=== PATIENT | female | born 1945 | race Caucasian/White ===

== ENCOUNTER 2021-12-21 10:41 | Outpatient (REF) | payer OTHER, SELFPAY ==
[2021-12-25 19:38] LABS: Acetylcholine Receptor Binding <0.30 nmol/L
[2021-12-26 00:27] LABS: Acetylcholine Recept. Blocking <15 (<15)
[2021-12-31 21:21] LABS: Acetylcholine Recep Modulating <1
== END 2021-12-21 10:42 | disposition home or self-care (01) ==
LOC: HO.LAB 10:41
PROVIDERS: PCP Internal Medicine; Visit Provider Psychiatry & Neurology Neurology
DX: H02.409 Unspecified ptosis of unspecified eyelid (principal)
CPT/HCPCS: 36415; 83519

== ENCOUNTER 2023-02-23 09:29 | Outpatient (AMB) | payer OTHER, SELFPAY ==
--- NOTE | 2023-02-23 09:32 | MHC.OFFVIS ---
Intake Vital Signs 02/23/23 09:35 Weight 177 lb 7.554 oz BP 144/84 H Blood Pressure Location Lt brachial Position Sitting Pulse 83 Pulse Source Pulse Oximeter Pulse Oximetry (%) 96 Oxygen Delivery Method Room Air Intake Visit Reasons: copd Allergies Penicillins Allergy (Verified 02/23/23 10:36) Rash Medication List - Last Reconciled 02/23/23 by Nikolas Russo MD albuterol sulfate 90 mcg/actuation 2 puffs inhalation Q6H PRN atorvastatin 40 mg PO DAILY cholecalciferol (vitamin D3) 50 mcg PO DAILY glipizide ER 5 mg PO QDAY hydralazine 50 mg PO TID lisinopril 30 mg PO DAILY metoprolol succinate ER 25 mg PO BID omeprazole 20 mg PO BID oxybutynin chloride ER 10 mg PO DAILY Do you need a note to return to daycare/school/sports/work: No HPI copd HPI Details THIS 77 YEARS OLD FEMALE, IS BEING SEEN FOR THE 1ST TIME FOR PULMONARY EVALUATION AND ONGOING MANAGEMENT FOR HER POSSIBLE COPD. SHE IS VERY PLEASANT, ALERT AND HAD A GOOD CONVERSATION. 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 RETIRED IN 2008. USED TO LIVE IN [place] AND THERE SHE HAD SEEN SOMEONE IN RELATION TO HER BREATHING PROBLEM MANY YEARS AGO, AT [facility]. SHE DID HAVE A PULMONARY FUNCTION TEST ALSO BUT IT WAS MANY YEARS AGO. She is currently living in [facility] in [place]. SHE HAS HISTORY OF SMOKING ABOUT 1 PACK A DAY FOR 40+ YEARS, AND QUIT IN 2008 WITH THE HELP OF A HIP NOTICED. THEN AT THE START OF COVID-19 PANDEMIC, SHE STARTED SMOKING 1 OR 2 CIGARETTES PER WEEK , WHICH SHE IS STILL DOING. SHE HAS ONLY OCCASIONAL COUGH, NONPRODUCTIVE. SHE HAS SOME WHEEZING WITH COUGH BUT ONCE IN A WHILE . SHE USES ALBUTEROL INHALER ONLY SPARINGLY. SHE DOES GET SHORT OF BREATH ON WALKING ON THE STREET , MORE THAN A BLOCK , WALKING UP HILL OR CLIMBING STAIRS. SHE HAS HAD NO PROLONGED OR SUSTAINED BOUTS OF DYSPNEA OR COUGH. AND SHE HAS NOT BEEN HOSPITALIZED FOR TREATMENT OF HER COPD EXACERBATIONS. 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 SHE HAS BEEN TREATED FOR PERIPHERAL NEUROPATHY WHICH MAY BE DUE TO COMBINATION OF DIABETES MELLITUS WELL ALCOHOLIC PERIPHERAL NEUROPATHY, USING AGENTS LIKE GABAPENTIN OR LYRICA DID NOT HELP. SHE DOES HAVE MILD INSTABILITY OF HER GAIT AND USES CANE OR A ROLLATOR WALKER WHEN GOING OUTDOORS. SHE HAS DISCOMFORT IN THE LEGS ESPECIALLY AT NIGHT. PATIENT HAS HAD RIGHT KNEE ARTHROPLASTY, ALSO HAS HAD REPAIR OF FRACTURE OF THE LEFT ANKLE MANY YEARS AGO. [facility] Medical History Dyspnea on exertion COPD (chronic obstructive pulmonary disease) Smoker Social History Patient Tobacco Use Status: Current someday Tobacco user Tobacco use type: Cigarette Cigarette Packs Per Day: 1.5 Years Smoked: 50 Review of Systems Const All systems reviewed & are unremarkable except as noted in HPI and below Eyes Reports other (MILD DROOPING OF UPPER EYELIDS, ONCE IN A WHILE.) ENT Reports no additional complaints Card Denies chest pain, Denies leg edema, Reports dyspnea on exertion (MILD) and Denies orthopnea Resp Reports as per HPI and Reports dyspnea on exertion (MILD) GI Reports heartburn (GERD SYMPTOMS BEING TREATED) Reports post void dribbling and Reports urinary incontinence Musc Reports numbness (LOWER EXTREMITIES) Skin/Breast Reports system reviewed and no additional complaints, except as documented Neuro Reports numbness (LOWER EXTREMITIES) and Reports paresthesias (LOWER EXTREMITIES) Psych Reports no additional complaints Endo Reports other (DIABETES MELLITUS CONTROLLED) Justice/Lymph Reports no additional complaints Aller/Immun Reports no additional complaints Physical Exam Vital Signs: Last Vital Signs Pulse 83 02/23/23 09:35 BP 144/84 H 02/23/23 09:35 Pulse Ox 96 02/23/23 09:35 Oxygen Delivery Method Room Air 02/23/23 09:35 Const General: healthy appearing, comfortable, no acute distress, alert and awake Orientation/consciousness: patient oriented x3 HEENT Head: Yes normal to inspection General nose exam: No nasal polyps present and No nasal discharge present Face and sinus: Yes sinuses nontender Mouth: oropharynx normal Throat: Yes posterior oropharynx normal Eyes General: appearance normal, both eyes and all related structures Neck Neck: Yes normal visual inspection, Yes no lymphadenopathy, Yes trachea midline and Yes no JVD Thyroid: Thyroid normal Chest Chest palpation & inspection: normal inspection of the chest, normal palpation of entire chest wall and no tenderness Resp Other: Percussion note is resonant. Breath sounds slightly distant with prolonged expiratory phase, but equal on both sides. No wheezes crepitations or rhonchi are heard. Cardio Palpation: normal PMI Rate: regular rate Rhythm: regular rhythm Heart sounds: no gallops and no murmurs GI Palpation (GI): Soft to palpation, nontender, No hepatosplenomegaly present and no masses Auscultation: normal bowel sounds Back/Spine/Pelvis Thoracic/Lumbar Spine: thoracic and lumbar spine normal to inspection Skin General skin exam: no rashes or lesions noted Neuro General: patient oriented x3, No gait normal (Slightly on stable and patient uses a walking cane) and no focal motor deficits Cranial nerves: Yes CN's II-XII intact bilaterally Extrem General: Yes normal to inspection, Yes no clubbing, cyanosis or edema and Yes no calf tenderness Psych Appearance: grossly normal and well kempt Speech and movement: Normal speech and movement present Assessment & Plan Assessment & Plan (1) Smoker: Comment: Patient does have past history of smoking 40 years, quit in 2008. Restarted smoking just 1 or 2 cigarettes per day since 2019 , she claims that she has cut down to 1-2 cigarettes per week. Code(s): F17.200 - Nicotine dependence, unspecified, uncomplicated (2) COPD (chronic obstructive pulmonary disease): Comment: She does have dyspnea on exertion which is probably due to some degree of chronic obstructive pulmonary disease. It does not seem to be very symptomatic at this time. PLAN IS TO DO COMPLETE PULMONARY FUNCTION TEST AND THEN DECIDE IF SHE NEEDS UPGRADING OF HER PULMONARY REGIMEN. I HAD A DETAILED DISCUSSION WITH HER ABOUT COPD. CHEST X-RAY IS ORDERED. COMPLETE PULMONARY FUNCTION TEST IS ORDERED. Code(s): J44.9 - Chronic obstructive pulmonary disease, unspecified (3) Dyspnea on exertion: Comment: SHE HAS MILD DEGREE OF DYSPNEA ON EXERTION, WHICH IS PROBABLY DUE TO UNDERLYING COPD. ADVISED TO KEEP ON DOING DEEP BREATHING EXERCISES. AND WAIT TILL WE DO COMPLETE PULMONARY FUNCTION TEST FOR ANY FURTHER ADJUSTMENT IN THE TREATMENT REGIMEN. Code(s): R06.09 - Other forms of dyspnea Orders: Orders XR chest 2V Today F17.200 - Nicotine dependence, unspecified, uncomplicated, J44.9 - Chronic obstructive pulmonary disease, unspecified PFT pulmonary function test Today F17.200 - Nicotine dependence, unspecified, uncomplicated, J44.9 - Chronic obstructive pulmonary disease, unspecified, R06.09 - Other forms of dyspnea Coding Level of Care Code New Pt Level 4 (81137) Diagnoses Smoker F17.200 COPD (chronic obstructive pulmonary disease) J44.9 Dyspnea on exertion R06.09
[2023-02-23 09:35] VITALS: BP 144/84; PULSE 83; O2SAT 96
== END 2023-02-23 10:10 | disposition home or self-care (01) ==
PROVIDERS: PCP Internal Medicine; Referring Provider Internal Medicine; Visit Provider Internal Medicine
DX: F17.200 Nicotine dependence, unspecified, uncomplicated (principal); J44.9 Chronic obstructive pulmonary disease, unspecified; R06.09 Other forms of dyspnea
CPT/HCPCS: 99204

== ENCOUNTER 2023-02-23 09:29 | Outpatient (REF) | payer MEDICARE, SELFPAY ==
--- NOTE | ~2023-02-23 | XR_ITS ---
EXAMINATION: XR CHEST CLINICAL INFORMATION: COPD COMPARISON: None available. TECHNIQUE: 2 views of the chest were obtained. FINDINGS: The cardiac silhouette does not appear enlarged. There is an air-fluid level that projects behind the heart suggestive of an esophageal hernia. Hilar and mediastinal contours are otherwise unremarkable. The lungs are clear. No pleural effusion or pneumothorax. Degenerative changes of the spine. XR/XR chest 2V IMPRESSION: Probable esophageal hernia. Otherwise unremarkable exam.
== END 2023-02-23 09:30 | disposition home or self-care (01) ==
LOC: HO.XRAY 09:29
PROVIDERS: PCP Internal Medicine; Visit Provider Internal Medicine
DX: J44.9 Chronic obstructive pulmonary disease, unspecified (principal); R06.09 Other forms of dyspnea; F17.210 Nicotine dependence, cigarettes, uncomplicated
CPT/HCPCS: 71046; 99202

== ENCOUNTER 2023-03-29 13:31 | Outpatient (REF) | payer MEDICARE, SELFPAY ==
--- NOTE | 2023-03-29 14:47 | PFT_ITS ---
Forced vital capacity 66%, FEV1 54%. FEV1/FVC ratio is 63. [id number] 42% and MVV 43%. Post bronchodilator therapy, there is a slight improvement in FVC and FEV1. Total lung capacity 92%, and residual volume 129%. Diffusion capacity is 21%, which is markedly decreased. CONCLUSION: Moderately severe obstructive airway disorder. Only minimal improvement after bronchodilator therapy is noted. There is evidence of some air trapping. Diffusion capacity is markedly decreased out of proportion to the other findings. I think this is more likely due to technical reason or maybe severe emphysema. This should be correlated with the clinical picture, and the patient should have resting and exercise oxygen saturation measurement. Nikolas Russo MD MSAnn/MODL / [phone]
== END 2023-03-29 13:32 | disposition home or self-care (01) ==
LOC: HO.RESP 13:31
PROVIDERS: PCP Internal Medicine; Visit Provider Internal Medicine
DX: J44.9 Chronic obstructive pulmonary disease, unspecified (principal); R06.09 Other forms of dyspnea; F17.200 Nicotine dependence, unspecified, uncomplicated
CPT/HCPCS: 94010; 94727; 94729

== ENCOUNTER → 2023-03-29 14:47 | Outpatient (BNV) | payer MEDICARE, SELFPAY | PROVIDERS: PCP Internal Medicine; Visit Provider Internal Medicine | DX: J44.9 Chronic obstructive pulmonary disease, unspecified (principal) | CPT/HCPCS: 94060; 94727; 94729 ==

== ENCOUNTER 2023-06-15 10:29 | Outpatient (AMB) | payer OTHER, SELFPAY ==
[2023-06-15 10:33] VITALS: BP 142/70; PULSE 61; O2SAT 97; BMI 32.2
--- NOTE | 2023-06-15 10:33 | A.OFFVIS_ITS ---
Intake Vital Signs 06/15/23 10:33 Height 5 ft 3 in Weight 181 lb 14.102 oz BMI 32.2 BP 142/70 H Blood Pressure Location Lt brachial Position Sitting Pulse 61 Pulse Source Pulse Oximeter Pulse Oximetry (%) 97 Oxygen Delivery Method Room Air Intake Visit Reasons: copd Intake Note: pt is here for follow up of pft and states she is feeling okay with breating, walking is the problem. Cardiac Cath Lab Manager Required: No Allergies Penicillins Allergy (Verified 06/15/23 10:51) Rash Medication List - Last Reconciled 06/15/23 by Nikolas Russo MD albuterol sulfate 90 mcg/actuation 2 puffs inhalation Q6H PRN atorvastatin 40 mg PO DAILY cholecalciferol (vitamin D3) 50 mcg PO DAILY glipizide ER 10 mg PO QDAY hydralazine 50 mg PO TID lisinopril 30 mg PO DAILY methenamine hippurate 1 g PO BID metoprolol succinate ER 25 mg PO BID omeprazole 20 mg PO BID oxybutynin chloride ER 10 mg PO DAILY trimethoprim 100 mg PO BEDTIME Do you need a note to return to daycare/school/sports/work: No HPI copd HPI Details THIS 78 YEARS OLD VERY PLEASANT FEMALE IS BACK FOR FOLLOW-UP, AFTER HAVING A CHEST X-RAY AND PULMONARY FUNCTION TEST. SHE QUIT SMOKING IN 2008, BUT IN THE PAST FEW YEARS HAS STARTED SMOKING A FEW CIGARETTES 1 OR 2 PER DAY, TO RELIEVE HER BOREDOM. SHE IS OKAY AT REST WITH VERY MINIMAL COUGH OR WHEEZING. MAIN COMPLAINT IS GETTING SHORT OF BREATH WHEN SHE WALKS OUTDOORS, EVEN FOR SHORT DISTANCE. PFSH Medical History Dyspnea on exertion COPD (chronic obstructive pulmonary disease) Smoker Social History Patient Tobacco Use Status: Current someday Tobacco user Tobacco use type: Cigarette Cigarette Packs Per Day: 0.5 Cigarettes Per Day: 2 Years Smoked: 50 Review of Systems Const All systems reviewed & are unremarkable except as noted in HPI and below Eyes Reports other (MILD DROOPING OF UPPER EYELIDS, ONCE IN A WHILE.) ENT Reports no additional complaints Card Denies chest pain, Denies leg edema, Reports dyspnea on exertion (MILD) and Den ies orthopnea Resp Reports as per HPI and Reports dyspnea on exertion (MILD) GI Reports heartburn (GERD SYMPTOMS BEING TREATED) Reports post void ibbling and Reports urinary incontinence Musc Reports numbness (LOWER EXTREMITIES) Skin/Breast Reports system reviewed and no additional complaints, except as documented Neuro Reports numbness (LOWER EXTREMITIES) and Reports paresthesias (LOWER EXTREMITIES) Psych Reports no additional complaints Endo Reports other (DIABETES MELLITUS CONTROLLED) Justice/Lymph Reports no additional complaints Aller/Immun Reports no additional complaints Physical Exam Vital Signs: Last Vital Signs Pulse 61 06/15/23 10:33 BP 142/70 H 06/15/23 10:33 Pulse Ox 97 06/15/23 10:33 Oxygen Delivery Method Room Air 06/15/23 10:33 BMI result Body Mass Index 32.2 Const General: healthy appearing, comfortable, no acute distress, alert and awake Orientation/consciousness: patient oriented x3 HEENT Head: Yes normal to inspection General nose exam: No nasal polyps present and No nasal discharge present Face and sinus: Yes sinuses nontender Mouth: oropharynx normal Throat: Yes posterior oropharynx normal Eyes General: appearance normal, both eyes and all related structures Neck Neck: Yes normal visual inspection, Yes no lymphadenopathy, Yes trachea midline and Yes no JVD Thyroid: Thyroid normal Chest Chest palpation & inspection: normal inspection of the chest, normal palpation of entire chest wall and no tenderness Resp Other: Percussion note is resonant. Breath sounds slightly distant with prolonged expiratory phase, but equal on both sides. No wheezes crepitations or rhonchi are heard. Cardio Palpation: normal PMI Rate: regular rate Rhythm: regular rhythm Heart sounds: no gallops and no murmurs GI Palpation (GI): Soft to palpation, nontender, No hepatosplenomegaly present and no masses Auscultation: normal bowel sounds Back/Spine/Pelvis Thoracic/Lumbar Spine: thoracic and lumbar spine normal to inspection Skin General skin exam: no rashes or lesions noted Neuro General: patient oriented x3, No gait normal (Slightly on stable and patient uses a walking cane) and no focal motor deficits Cranial nerves: Yes CN's II-XII intact bilaterally Extrem General: Yes normal to inspection, Yes no clubbing, cyanosis or edema and Yes no calf tenderness Psych Appearance: grossly normal and well kempt Speech and movement: Normal speech and movement present Results Reviewed Results Reviewed: Chest x-ray on 02/23 , normal except for presence of the possible hiatal her akhil. Pulmonary function test on 03/29/2023. Positive for moderately severe obstructive airway disorder, with some improvement after bronchodilator therapy. TLC 92% and residual volume 129% indicating some air trapping. DLCO is 21%, this is too much decreased out of proportion to the other values. May be due to technical reason. 6 minutes walk test : No significant O2 desaturation, lowest O2 sat 91% * so much decreased DLCO is probably due to technical reason. Assessment & Plan Assessment & Plan (1) Smoker: Comment: Patient does have past history of smoking 40 years, quit in 2008.Not candidate for LDCT ,age 78 Restarted smoking just 1 or 2 cigarettes per day since 2019 , she claims that she has cut down to 1-2 cigarettes per week. Code(s): F17.200 - Nicotine dependence, unspecified, uncomplicated Plan: Had a good talk with her about quitting completely. She is down to 1 or 2 cigarettes per week, and will try to quit completely (2) COPD (chronic obstructive pulmonary disease): Comment: She does have dyspnea on exertion . PULMONARY FUNCTION TEST DOES CONFIRM THAT SHE HAS MODERATE DEGREE OF COPD. THERE IS SOME IMPROVEMENT IN FVC AND FEV1 AFTER BRONCHODILATOR THERAPY. EXPLAINED THE RESULTS TO THE PATIENT. SHE WANTS TO TRY SOME INHALER. Code(s): J44.9 - Chronic obstructive pulmonary disease, unspecified Plan: BECAUSE THERE WAS SOME IMPROVEMENT AFTER BRONCHODILATOR THERAPY, I THINK SHE WILL DO BETTER WITH THE COMBINATION INHALER. SHE IS NOT VERY FOND OF USING THE MEDS. I THINK BREO- 200-251 INHALATION DAILY WOULD BE MORE CONVENIENT FOR HER TO USE. SHE IS FULLY AWARE OF RINSING HER THROAT THOROUGHLY AFTER USING THIS INHALER. Plan BREO 200-25 1 INH DAILY AND ALBUTEROL HFA 2 PUFFS ONLY PRN Medications: New fluticasone furoate-vilanterol 200-25 mcg/dose (Breo Ellipta) 1 inh inhalation DAILY 60 ea 5RF COPD 30 days Coding Level of Care Code Est Pt Level 3 (99785) Diagnoses Smoker F17.200 COPD (chronic obstructive pulmonary disease) J44.9
[2023-06-15 11:34] VITALS: PULSE 57; O2SAT 95
== END 2023-06-15 11:05 | disposition home or self-care (01) ==
PROVIDERS: PCP Internal Medicine; Visit Provider Internal Medicine
DX: F17.200 Nicotine dependence, unspecified, uncomplicated (principal); J44.9 Chronic obstructive pulmonary disease, unspecified
CPT/HCPCS: 94618; 99213

== ENCOUNTER → 2023-06-15 10:29 | Outpatient (BNVA) | payer OTHER, SELFPAY | PROVIDERS: PCP Internal Medicine; Visit Provider Internal Medicine | DX: J44.9 Chronic obstructive pulmonary disease, unspecified (principal); F17.210 Nicotine dependence, cigarettes, uncomplicated | CPT/HCPCS: 94618 ==

== ENCOUNTER 2023-07-08 13:01 | Inpatient (IN) | payer MEDICARE, OTHER, SELFPAY ==
--- NOTE | ~2023-07-08 | CT_ITS ---
EXAMINATION: CT ANGIOGRAM OF THE CHEST WITH AND WITHOUT CONTRAST (CT PULMONARY ANGIOGRAM FOR PE) CLINICAL INFORMATION: Reason for Exam SOB COMPARISON: Previous chest x-ray from earlier the same day TECHNIQUE: Prior to contrast administration, noncontrast localization images were obtained. Subsequently, multidetector volumetric imaging was performed from the thoracic inlet to below the diaphragms following the administration of 65 mL Omnipaque 350 intravenous contrast. No contrast reaction reported Sagittal, coronal, and MIP oblique sagittal reformatted images were obtained on the CT workstation, uploaded to PACS, and reviewed. This CT examination was performed using dose optimization techniques as appropriate, variously including the following: *Automated exposure control *Adjustment of mA and/or kV according to patient size (this includes techniques or standardized protocols for targeted exams where dose is matched to indication/reason for exam; i.e. extremities or head) *Use of iterative reconstruction technique Total exam dose-length product 296 mGy-cm FINDINGS: QUALITY OF STUDY/CONTRAST BOLUS: Satisfactory. PULMONARY ARTERIES: No pulmonary emboli. THORACIC AORTA: No aneurysm. LUNG: Large dense consolidation in the left upper lobe with air bronchograms probably representing pneumonia. Smaller dense consolidation in the right upper lobe with air bronchograms. There is also some involvement of the superior segment of the right lower lobe. This probably represents pneumonia as well. There is a heterogeneous in attenuation nodule in the peripheral pleural right middle lobe measuring 2.4 x 3.4 cm. This is high low in attenuation and has small calcifications. There are scattered small nodules for example in the left lower lobe peripheral or subpleural measuring 1 cm axial image 158 series 10 and peripheral or subpleural right middle lobe largest measuring 6 mm axial image 318 series 10. PLEURA: No pleural effusion or pneumothorax. MEDIASTINUM: Normal heart size. Spinal lymph nodes. Large esophageal hernia or intrathoracic stomach. Severe atherosclerotic disease thoracic aorta. No evidence of septal bowing or right heart strain. CORONARY ARTERY CALCIFICATION: Mild CHEST WALL/AXILLA: No axillary or internal mammary lymphadenopathy. OSSEOUS STRUCTURES: No acute or suspicious osseous abnormality. UPPER ABDOMEN: Question small cystic area in the head of the pancreas measuring 1.5 x 2 cm coronal reconstructed image 37 mm. No reflux of contrast into the hepatic veins to suggest elevated right heart pressures. CT/CT angio chest PE protocol IMPRESSION: 1. No evidence of pulmonary embolism. Dense bilateral upper lobe and superior segment right lower lobe consolidations with air bronchograms probably representing pneumonia. Large esophageal hernia or intrathoracic stomach. Question small cystic area in the head of the pancreas. 2. VTE: negative. 3. There is a heterogeneous in attenuation nodule in the peripheral pleural right middle lobe measuring 2.4 x 3.4 cm, uncertain etiology. Infectious, inflammatory and neoplastic processes should be considered.
--- NOTE | ~2023-07-08 | XR_ITS ---
EXAMINATION: XR CHEST CLINICAL INFORMATION: Reassess pneumonia COMPARISON: Chest x-ray and chest CT July 08, 2023 TECHNIQUE: Frontal view of the chest was obtained. FINDINGS: Persisting but improved airspace opacities within the left lateral upper chest and along the right fissure. Previously noted airspace disease of the right lung base has essentially resolved by radiographic evaluation. There is similar blunting of the left costophrenic angle without gross pleural effusion. No pneumothorax. Cardiac silhouette is mildly enlarged. Hiatal hernia noted. XR/XR chest 1V IMPRESSION: Persistent but improving bilateral airspace disease.
--- NOTE | ~2023-07-08 | CT_ITS ---
EXAMINATION: CT ABDOMEN AND PELVIS WITH CONTRAST CLINICAL INFORMATION: Abdominal pain and diarrhea COMPARISON: None available. TECHNIQUE: Multidetector volumetric images were obtained from the superior aspect of the liver through the pubic symphysis following administration of 65 mL of Omnipaque 350 intravenous contrast. Sagittal and coronal reformatted images were obtained on the technologist's workstation. Oral contrast: Yes This CT examination was performed using dose optimization techniques as appropriate, variously including the following: *Automated exposure control *Adjustment of mA and/or kV according to patient size (this includes techniques or standardized protocols for targeted exams where dose is matched to indication/reason for exam; i.e. extremities or head) *Use of iterative reconstruction technique DLP: 296 mGy-cm FINDINGS: Evaluation of the upper abdomen limited due to motion artifact. LIVER, GALLBLADDER, AND BILIARY TREE: The liver is normal in size, shape, and attenuation. No focal hepatic lesion or biliary ductal dilatation is present. The gallbladder is unremarkable with no evidence of radiopaque gallstones, gallbladder wall thickening, or obvious pericholecystic inflammatory changes. PANCREAS: 1.5 x 2 cm cyst in the head/neck of the pancreas. Atrophic changes of the pancreas. SPLEEN: Unremarkable. ADRENAL GLANDS: Unremarkable. KIDNEYS AND URETERS: The kidneys are normal in size, shape, and attenuation. No hydronephrosis, hydroureter, or calculi seen. Right renal cysts. No imaging follow-up recommended. No perinephric stranding. BLADDER: Unremarkable. GASTROINTESTINAL TRACT: The small and large bowel are unremarkable. The appendix is is not seen. Large esophageal hernia or stomach. ABDOMINAL WALL: Small right inguinal hernia containing fat. LYMPH NODES: Normal. VASCULAR: Atherosclerotic disease PELVIC VISCERA: Hysterectomy OSSEOUS STRUCTURES: Degenerative changes of the spine. No fracture. CT/CT abdomen pelvis w IV con IMPRESSION: Limited due to motion. 1.5 x 2 cm cystic lesion in the neck of the pancreas. Follow-up MR of the pancreas with and without contrast and MRCP recommended. Large esophageal hernia. Fleischner guidelines were followed.
--- NOTE | ~2023-07-08 | XR_ITS ---
EXAMINATION: XR CHEST CLINICAL INFORMATION: SOB COMPARISON: Chest x-ray 02/23/2023 TECHNIQUE: 2 views of the chest were obtained. FINDINGS: The lungs are hypoexpanded with patchy opacity seen in left upper lobe and right upper lung consistent with infiltrates. Heart size and pulmonary vascularity is normal. No gross bony abnormality seen. XR/XR chest 2V IMPRESSION: Bilateral upper lobe infiltrates.
--- NOTE | 2023-07-08 13:12 | ECG_ITS ---
Test Reason : dizziness Blood Pressure : / mmHG Vent. Rate : 092 BPM Atrial Rate : 092 BPM P-R Int : 154 ms QRS Dur : 096 ms QT Int : 372 ms P-R-T Axes : 023 -31 031 degrees QTc Int : 460 ms Normal sinus rhythm Left axis deviation Nonspecific ST and T wave abnormality Abnormal ECG No previous ECGs available Referred By: Jessica Hilton Electronically Signed By:AMY MARTINEZ MD
[2023-07-08 13:20] VITALS: BP 162/84; BP 167/78; PULSE 80; PULSE 96; RESP 18; TEMP 36.9; O2SAT 90; O2SAT 91; BMI 30.1
[2023-07-08 13:23] LABS: Glucose, Whole Blood 386 mg/dL (60-115)
--- NOTE | 2023-07-08 13:35 | ED.GENADULT ---
HPI - General Adult General Chief complaint: Weakness Stated complaint: ams, dizzy, sob Time Seen by Provider: 07/08/23 13:12 History of Present Illness HPI narrative: 78 y/o F patient; PMH COPD not on O2, T2DM on Glipizide, HLD, HTN, GERD; presents from home with family who report patient has been generally unwell since 06/28/2023. The patient herself endorses generalized non-focal abdominal pain, nausea, decreased PO intake, diarrhea, and unspecified weight loss. She denies vomiting. The patient states she initially thought she had COVID, however over the last two days she has noticed her symptoms seem to be worsening. Specifically she endorses a cough productive of yellow/green sputum without hemoptysis and continued significant generalized abdominal pain without the ability to tolerate PO. Family deny known sick contacts. Patient denies: chest pain, syncope. Patient states she has been taking her diabetes medication as prescribed, her latest HbA1c was approx. 8. Related Data Home Medications Medication Instructions Recorded Confirmed albuterol sulfate 90 mcg/actuation 2 puff inhalation Q6H PRN 02/23/23 07/08/23 aerosol inhaler Shortness Of Breath Or Wheezing atorvastatin 40 mg tablet 40 mg PO DAILY 02/23/23 07/08/23 cholecalciferol (vitamin D3) 50 50 mcg PO DAILY 02/23/23 07/08/23 mcg (2,000 unit) capsule hydralazine 50 mg tablet 50 mg PO TID 02/23/23 07/08/23 lisinopril 30 mg tablet 30 mg PO DAILY 02/23/23 07/08/23 oxybutynin chloride 10 mg 10 mg PO DAILY 02/23/23 07/08/23 tablet,extended release 24 hr trimethoprim 100 mg tablet 100 mg PO BEDTIME 06/15/23 07/08/23 cyanocobalamin (vitamin B-12) 1,000 mcg PO DAILY 07/08/23 07/08/23 1,000 mcg tablet gabapentin 300 mg capsule 300 mg PO BID 07/08/23 07/08/23 glipizide 10 mg tablet 10 mg PO DAILY 07/08/23 07/08/23 metoprolol tartrate 25 mg tablet 25 mg PO BID 07/08/23 07/08/23 Previous Rx's Medication Instructions Recorded fluticasone furoate 200 1 inh inhalation DAILY COPD 30 06/15/23 mcg-vilanterol 25 mcg/dose days #60 ea inhalation powder (Breo Ellipta) Allergies Allergy/AdvReac Type Severity Reaction Status Date / Time Penicillins Allergy Rash Verified 07/08/23 13:23 Review of Systems Review of Systems: Yes all other systems are reviewed and are negative Neurologic: Denies Sensory deficit (Neuro) [facility] Past Medical History Attestation statement: The following information was validated with the patient. Source: old records reviewed Medical History Dyspnea on exertion COPD (chronic obstructive pulmonary disease) Smoker Social History Social History Patient Tobacco Use Status: Current someday Tobacco user Tobacco use type: Cigarette Cigarette Packs Per Day: 0.5 Cigarettes Per Day: 2 Years Smoked: 50 Advance Directives: Yes Advance Directives Information Provided: Yes Advance Directives on File: No Physical Exam ED Vital Signs: Vital Signs - 24 hr 07/08/23 13:20 07/08/23 15:00 07/08/23 18:27 Temperature 98.4 F 99.4 F Pulse Rate 96 77 108 H Respiratory Rate 18 21 H 14 Blood Pressure 167/78 H 178/83 H Pulse Oximetry 91 L 92 Oxygen Delivery Method Room Air Nasal Cannula Oxygen Flow Rate 2 BMI result Body Mass Index 30.1 Patient is afebrile and hemodynamically stable. Const General: cooperative Orientation/consciousness: patient oriented x3 HENMT Head: Yes atraumatic Eyes General: appearance normal, both eyes and all related structures Pupils: Equal, round and reactive pupils present Neck Neck: Yes normal visual inspection, Yes full ROM, Yes supple and No tender Chest Chest palpation & inspection: normal inspection of the chest and normal palpation of entire chest wall Resp Other: Bibasilar rhonchi right > left Effort & Inspection: normal respiratory effort, able to speak in complete sentences, Actively coughing and no respiratory distress Cardio Rate: regular rate Peripheral pulses: Peripheral pulses 2+ throughout GI Other: Diffuse abdominal discomfort worse in the RUE, epigastric, and LLQ areas Inspection: No Abdominal wall edema and No distended Palpation (GI): no guarding and not rigid Auscultation: normal bowel sounds General: Yes no CVA tenderness Back/Spine/Pelvis Back: no CVA tenderness Neuro General: patient oriented x3, moves all extremities and no focal motor deficits Cranial nerves: Yes Equal, round and reactive pupils present and Yes Bilaterally intact EOM present Sensory Exam: No Sensory deficit (Neuro) Course Course Course Narrative: Patient is afebrile, hemodynamically stable. Pertinent issues: 1) Respiratory cough/congestion/dyspnea -Will order CXR, respiratory swab, VBG -Will order bronchodilator protocal 2) Abdominal pain/anorexia/diarrhea -Will order CT Abdomen/Pelvis W IV Contrast -Will obtain laboratory studies including: CBC, CMP, LA, UA -Providing 1L IVF for suspected dehydration Reevaluation(s) Reevaluation #1: Patient requiring 1 - 2L O2 supplementation. Patient meeting SIRS for tachycardia, leukocytosis. LA and blood cultures ordered. Unclear source at this time. Time: 14:37 Reevaluation #2: CXR with significant abnormalities - pending formal radiology read. Added CTA Chest with run-off to Abdomen/Pelvis. Laboratory studies resulting: Leukocytosis 22.3. Hgb 9.6 (unclear baseline). No acidosis on VBG - unlikely DKA or HHS given glucose in 300s. Potassium 2.8. Added magnesium level which was 2.1. Supplemented potassium with IV. Cr 1.66 - providing 2L IVF. LA 1.9. Elevated LFTs and alk phos. Troponin negative. COVID/Flu/RSV negative. Time: 14:52 Reevaluation #3: CXR read reviewed - bilateral upper lobe pneumonia. Antibiotics with Ceftriaxone and Doxycycline provided. Time: 15:40 Additional Reevaluation(s): CTA Chest notable for dense bilateral upper lobe and superior segment right lower lobe consolidations with air bronchograms likely representing pneumonia. CT Abdomen/Pelvis with 1.5 by 2cm cystic lesion in the neck of the pancreas. Recommend MRCP. Plan: Admit to hospitalist for: ERICK, hypokalemia, multifocal pneumonia Condition: Stable Patient and family updated on findings. Medications Administered Generic Name Dose Route Start Last Admin Trade Name Freq PRN Reason Stop Dose Admin Potassium Chloride 10 meq in 100 mls @ 100 mls/hr 07/08/23 15:15 07/08/23 17:39 Potassium Chloride/H20 IV 07/08/23 19:14 100 mls/hr Q1H ABDULKADIR Administration Discontinued Medications Generic Name Dose Route Start Last Admin Trade Name Freq PRN Reason Stop Dose Admin Albuterol Sulfate 2.5 mg/ 0 mg 07/08/23 14:47 07/08/23 14:51 Albuterol/Ipratropium 3 ml INHALE 07/08/23 14:48 5 dose ONCE ONE Administration Sodium Chloride 1,000 mls @ 999 mls/hr 07/08/23 14:00 07/08/23 16:34 Ns IV 07/08/23 15:00 Infused .Q1H1M ABDULKADIR Infusion Sodium Chloride 1,000 mls @ 999 mls/hr 07/08/23 15:00 07/08/23 18:07 Ns IV 07/08/23 16:00 Infused .Q1H1M ABDULKADIR Infusion Ceftriaxone Sodium 1 gm/ 50 mls @ 100 mls/hr 07/08/23 15:11 07/08/23 17:08 Sodium Chloride IV 07/08/23 15:40 Infused ONCE ONE Infusion Doxycycline Hyclate 100 mg/ 250 mls @ 166.67 mls/hr 07/08/23 15:11 07/08/23 18:07 Sodium Chloride IV 07/08/23 16:40 Infused ONCE ONE Infusion Iohexol 100 ml 07/08/23 16:11 07/08/23 16:11 Iohexol 350 Mg/Ml 100 Ml Infus..Btl IV 07/08/23 16:12 65 ml ONCE ONE Administration Medical Decision Making Lab Data 07/08/23 14:15 07/08/23 14:15 Labs: Lab Results 07/08/23 07/08/23 07/08/23 Range/Units 13:19 13:33 14:15 WBC 22.3 H (4.8-10.8) X10*3/uL RBC 3.78 L (4.20-5.50) X10*6/uL Hgb 9.6 L (12.0-16.0) g/dl Hct 29.0 L (37.0-47.0) % MCV 76.7 L (80.0-98.0) fL MCH 25.4 L (27.0-33.0) pg MCHC 33.1 (31.0-35.0) g/dl RDW 17.2 H (11.0-16.0) % Plt Count 447 H (160-400) X10*3/uL MPV 11.6 (9.4-12.3) fL Immature Gran % (Auto) Cancelled Neut % (Auto) Cancelled Lymph % (Auto) Cancelled [place] % (Auto) Cancelled Eos % (Auto) Cancelled Baso % (Auto) Cancelled Lymph # (Auto) Cancelled [place] # (Auto) Cancelled Eos # (Auto) Cancelled Baso # (Auto) Cancelled Abs Immat Gran (auto) Cancelled Absolute Neuts (auto) Cancelled Absolute Nucleated RBC 0.000 (0.0-0.012) X10*3/uL Nucleated RBC % (auto) 0.0 (0.0-0.2) /100WBC Neutrophils % (Manual) 92 H (45-73) % Band Neutrophils % 1 L (3-5) % Lymphocytes % (Manual) 5 L (20-40) % Monocytes % (Manual) 1 L (2-11) % Eosinophils % (Manual) 1 (0-4) % Abs Neuts (Manual) 20.7 H (2.0-8.3) X10*3/uL Lymphocytes # (Manual) 1.1 L (1.2-4.9) X10*3/uL Monocytes # (Manual) 0.2 (0.1-1.2) X10*3/uL Eosinophils # (Manual) 0.2 (0.0-0.4) X10*3/uL Platelet Estimate NORMAL (NORMAL) Plt Morphology Comment NORMAL RBC Morphology NOTED Microcytosis 1+ (5-14) /OIF Target Cells 1+ (5-14) /OIF VBG pH (7.32-7.43) VBG pCO2 mmHg VBG pO2 mmHg VBG HCO3 (22-26) mmol/L VBG O2 Saturation % VBG Base Excess mmol/L Sodium 137 (135-145) mmol/L Potassium 2.8 L* (3.3-5.1) mmol/L Chloride 100 (96-108) mmol/L Carbon Dioxide 23 (22-29) mmol/L Anion Gap 17 (12-20) BUN 69 H (9-16) mg/dL Creatinine 1.66 H (0.5-1.4) mg/dL Estim Creat Clear Calc 27.5 Estimated GFR 30 POC Glucose 386 H* (60-115) mg/dL Random Glucose 345 H (60-115) mg/dL Lactic Acid 1.9 (0.5-2.0) mmol/L Calcium 10.4 H (8.4-10.2) mg/dL Magnesium 2.1 (1.6-2.6) mg/dL Total Bilirubin 0.4 (0.0-1.0) mg/dL Direct Bilirubin 0.3 (0.0-0.5) mg/dL AST 61 H (5-31) U/L ALT 32 H (0-31) U/L Alkaline Phosphatase 187 H (39-117) U/L Troponin I High Sens < 2.7 (<3.5-17.0) ng/L Total Protein 7.7 (6.5-8.0) g/dL Albumin 2.9 L (3.5-5.0) g/dL Lipase 9 (8-78) U/L Beta-Hydroxybutyrate (0.02-0.27) mmol/L Urine Color Urine Appearance Urine pH (5.0-9.0) Ur Specific [place] (1.005-1.025) Urine Protein (Neg-Trace) mg/dL Urine Glucose (UA) (Negative) mg/dL Urine Ketones (Negative) mg/dL Urine Blood (Negative) Urine Nitrite (Negative) Ur Leukocyte Esterase (Negative) Urine RBC (0-2) /HPF Urine WBC (0-5) /HPF Ur Squamous Epith Cells (0-2) /HPF Urine Bacteria (None Seen) Hyaline Casts (0-2) /LPF Urine Yeast Influenza Type A (PCR) NEGATIVE (Negative) Influenza Type B (PCR) NEGATIVE (Negative) RSV RNA Qual (PCR) NEGATIVE (Negative) SARS-CoV-2 RNA (RT-PCR) NEGATIVE (Negative) 07/08/23 07/08/23 07/08/23 Range/Units 14:23 15:00 15:29 WBC (4.8-10.8) X10*3/uL RBC (4.20-5.50) X10*6/uL Hgb (12.0-16.0) g/dl Hct (37.0-47.0) % MCV (80.0-98.0) fL MCH (27.0-33.0) pg MCHC (31.0-35.0) g/dl RDW (11.0-16.0) % Plt Count (160-400) X10*3/uL MPV (9.4-12.3) fL Immature Gran % (Auto) Neut % (Auto) Lymph % (Auto) [place] % (Auto) Eos % (Auto) Baso % (Auto) Lymph # (Auto) [place] # (Auto) Eos # (Auto) Baso # (Auto) Abs Immat Gran (auto) Absolute Neuts (auto) Absolute Nucleated RBC (0.0-0.012) X10*3/uL Nucleated RBC % (auto) (0.0-0.2) /100WBC Neutrophils % (Manual) (45-73) % Band Neutrophils % (3-5) % Lymphocytes % (Manual) (20-40) % Monocytes % (Manual) (2-11) % Eosinophils % (Manual) (0-4) % Abs Neuts (Manual) (2.0-8.3) X10*3/uL Lymphocytes # (Manual) (1.2-4.9) X10*3/uL Monocytes # (Manual) (0.1-1.2) X10*3/uL Eosinophils # (Manual) (0.0-0.4) X10*3/uL Platelet Estimate (NORMAL) Plt Morphology Comment RBC Morphology Microcytosis /OIF Target Cells /OIF VBG pH 7.41 (7.32-7.43) VBG pCO2 36 mmHg VBG pO2 47 mmHg VBG HCO3 23 (22-26) mmol/L VBG O2 Saturation 71.0 % VBG Base Excess -0.5 mmol/L Sodium (135-145) mmol/L Potassium (3.3-5.1) mmol/L Chloride (96-108) mmol/L Carbon Dioxide (22-29) mmol/L Anion Gap (12-20) BUN (9-16) mg/dL Creatinine (0.5-1.4) mg/dL Estim Creat Clear Calc Estimated GFR POC Glucose (60-115) mg/dL Random Glucose (60-115) mg/dL Lactic Acid (0.5-2.0) mmol/L Calcium (8.4-10.2) mg/dL Magnesium (1.6-2.6) mg/dL Total Bilirubin (0.0-1.0) mg/dL Direct Bilirubin (0.0-0.5) mg/dL AST (5-31) U/L ALT (0-31) U/L Alkaline Phosphatase (39-117) U/L Troponin I High Sens (<3.5-17.0) ng/L Total Protein (6.5-8.0) g/dL Albumin (3.5-5.0) g/dL Lipase (8-78) U/L Beta-Hydroxybutyrate 0.06 (0.02-0.27) mmol/L Urine Color Yellow Urine Appearance Cloudy Urine pH 5.5 (5.0-9.0) Ur Specific [place] 1.025 (1.005-1.025) Urine Protein 100 (2+) H (Neg-Trace) mg/dL Urine Glucose (UA) 500 H (Negative) mg/dL Urine Ketones Negative (Negative) mg/dL Urine Blood Negative (Negative) Urine Nitrite Negative (Negative) Ur Leukocyte Esterase Negative (Negative) Urine RBC 0-2 (0-2) /HPF Urine WBC 0-5 (0-5) /HPF Ur Squamous Epith Cells 11-20 (0-2) /HPF Urine Bacteria 1+ (None Seen) Hyaline Casts 0-2 (0-2) /LPF Urine Yeast Present Influenza Type A (PCR) (Negative) Influenza Type B (PCR) (Negative) RSV RNA Qual (PCR) (Negative) SARS-CoV-2 RNA (RT-PCR) (Negative) Independent Interpretation I performed an independent interpretation of an: EKG Interpretation: NSR 92BPM without ischemic changes, normal intervals Radiology Impression Discussion of test interpretation with radiology: I have reviewed the radiologist's reading. Radiologist Impression: EXAMINATION: XR CHEST CLINICAL INFORMATION: SOB COMPARISON: Chest x-ray 02/23/2023 TECHNIQUE: 2 views of the chest were obtained. FINDINGS: The lungs are hypoexpanded with patchy opacity seen in left upper lobe and right upper lung consistent with infiltrates. Heart size and pulmonary vascularity is normal. No gross bony abnormality seen. XR/XR chest 2V IMPRESSION: Bilateral upper lobe infiltrates. EXAMINATION: CT ANGIOGRAM OF THE CHEST WITH AND WITHOUT CONTRAST (CT PULMONARY ANGIOGRAM FOR PE) CLINICAL INFORMATION: Reason for Exam SOB COMPARISON: Previous chest x-ray from earlier the same day TECHNIQUE: Prior to contrast administration, noncontrast localization images were obtained. Subsequently, multidetector volumetric imaging was performed from the thoracic inlet to below the diaphragms following the administration of 65 mL Omnipaque 350 intravenous contrast. No contrast reaction reported Sagittal, coronal, and MIP oblique sagittal reformatted images were obtained on the CT workstation, uploaded to PACS, and reviewed. This CT examination was performed using dose optimization techniques as appropriate, variously including the following: *Automated exposure control *Adjustment of mA and/or kV according to patient size (this includes techniques or standardized protocols for targeted exams where dose is matched to indication/reason for exam; i.e. extremities or head) *Use of iterative reconstruction technique Total exam dose-length product 296 mGy-cm FINDINGS: QUALITY OF STUDY/CONTRAST BOLUS: Satisfactory. PULMONARY ARTERIES: No pulmonary emboli. THORACIC AORTA: No aneurysm. LUNG: Large dense consolidation in the left upper lobe with air bronchograms probably representing pneumonia. Smaller dense consolidation in the right upper lobe with air bronchograms. There is also some involvement of the superior segment of the right lower lobe. This probably represents pneumonia as well. There is a heterogeneous in attenuation nodule in the peripheral pleural right middle lobe measuring 2.4 x 3.4 cm. This is high low in attenuation and has small calcifications. There are scattered small nodules for example in the left lower lobe peripheral or subpleural measuring 1 cm axial image 158 series 10 and peripheral or subpleural right middle lobe largest measuring 6 mm axial image 318 series 10. PLEURA: No pleural effusion or pneumothorax. MEDIASTINUM: Normal heart size. Spinal lymph nodes. Large esophageal hernia or intrathoracic stomach. Severe atherosclerotic disease thoracic aorta. No evidence of septal bowing or right heart strain. CORONARY ARTERY CALCIFICATION: Mild CHEST WALL/AXILLA: No axillary or internal mammary lymphadenopathy. OSSEOUS STRUCTURES: No acute or suspicious osseous abnormality. UPPER ABDOMEN: Question small cystic area in the head of the pancreas measuring 1.5 x 2 cm coronal reconstructed image 37 mm. No reflux of contrast into the hepatic veins to suggest elevated right heart pressures. CT/CT angio chest PE protocol IMPRESSION: 1. No evidence of pulmonary embolism. Dense bilateral upper lobe and superior segment right lower lobe consolidations with air bronchograms probably representing pneumonia. Large esophageal hernia or intrathoracic stomach. Question small cystic area in the head of the pancreas. 2. VTE: negative. 3. There is a heterogeneous in attenuation nodule in the peripheral pleural right middle lobe measuring 2.4 x 3.4 cm, uncertain etiology. Infectious, inflammatory and neoplastic processes should be considered. EXAMINATION: CT ABDOMEN AND PELVIS WITH CONTRAST CLINICAL INFORMATION: Abdominal pain and diarrhea COMPARISON: None available. TECHNIQUE: Multidetector volumetric images were obtained from the superior aspect of the liver through the pubic symphysis following administration of 65 mL of Omnipaque 350 intravenous contrast. Sagittal and coronal reformatted images were obtained on the technologist's workstation. Oral contrast: Yes This CT examination was performed using dose optimization techniques as appropriate, variously including the following: *Automated exposure control *Adjustment of mA and/or kV according to patient size (this includes techniques or standardized protocols for targeted exams where dose is matched to indication/reason for exam; i.e. extremities or head) *Use of iterative reconstruction technique DLP: 296 mGy-cm FINDINGS: Evaluation of the upper abdomen limited due to motion artifact. LIVER, GALLBLADDER, AND BILIARY TREE: The liver is normal in size, shape, and attenuation. No focal hepatic lesion or biliary ductal dilatation is present. The gallbladder is unremarkable with no evidence of radiopaque gallstones, gallbladder wall thickening, or obvious pericholecystic inflammatory changes. PANCREAS: 1.5 x 2 cm cyst in the head/neck of the pancreas. Atrophic changes of the pancreas. SPLEEN: Unremarkable. ADRENAL GLANDS: Unremarkable. KIDNEYS AND URETERS: The kidneys are normal in size, shape, and attenuation. No hydronephrosis, hydroureter, or calculi seen. Right renal cysts. No imaging follow-up recommended. No perinephric stranding. BLADDER: Unremarkable. GASTROINTESTINAL TRACT: The small and large bowel are unremarkable. The appendix is is not seen. Large esophageal hernia or stomach. ABDOMINAL WALL: Small right inguinal hernia containing fat. LYMPH NODES: Normal. VASCULAR: Atherosclerotic disease PELVIC VISCERA: Hysterectomy OSSEOUS STRUCTURES: Degenerative changes of the spine. No fracture. CT/CT abdomen pelvis w IV con IMPRESSION: Limited due to motion. 1.5 x 2 cm cystic lesion in the neck of the pancreas. Follow-up MR of the pancreas with and without contrast and MRCP recommended. Large esophageal hernia. Fleischner guidelines were followed. Discharge Plan Discharge Clinical Impression: Multifocal pneumonia, ERICK (acute kidney injury), Hypokalemia Patient Disposition: Admitted As Inpatient
[2023-07-08] MEDS: 0.9 % Sodium Chloride 1,000 ML 999 ML IV ×2 (14:17→16:33)
[2023-07-08 14:28] LABS: Hemoglobin 9.6 g/dl (12.0-16.0); Mean Corpuscular HGB Conc 33.1 g/dl (31.0-35.0); Mean Corpuscular Hemoglobin 25.4 pg (27.0-33.0); Mean Corpuscular Volume 76.7 fL (80.0-98.0); Mean Platelet Volume 11.6 fL (9.4-12.3); Platelet Count 447 X10*3/uL (160-400); Red Blood Count 3.78 X10*6/uL (4.20-5.50); Red Cell Distribution Width 17.2 % (11.0-16.0); Venous Blood Gas Refer to POC result; White Blood Count 22.3 X10*3/uL (4.8-10.8)
[2023-07-08 14:29] LABS: VBG Base Excess -0.5 mmol/L; VBG HCO3 23 mmol/L (22-26); VBG pCO2 36 mmHg; VBG pH 7.41 (7.32-7.43); VBG pO2 47 mmHg
[2023-07-08 14:32] LABS: Influenza A PCR NEGATIVE (Negative); Influenza B PCR NEGATIVE (Negative); Resp Syncy Virus RNA Qual PCR NEGATIVE (Negative); SARS COV2 PCR INHOUSE NEGATIVE (Negative)
[2023-07-08 14:36] LABS: Lactic Acid 1.9 mmol/L (0.5-2.0)
[2023-07-08 14:45] LABS: Alanine Aminotransferase 32 U/L (0-31); Albumin Level 2.9 g/dL (3.5-5.0); Alkaline Phosphatase 187 U/L (39-117); Anion Gap 17 (12-20); Aspartate Amino Transferase 61 U/L (5-31); Bilirubin Direct 0.3 mg/dL (0.0-0.5); Bilirubin Total 0.4 mg/dL (0.0-1.0); Blood Urea Nitrogen 69 mg/dL (9-16); Calcium 10.4 mg/dL (8.4-10.2); Carbon Dioxide 23 mmol/L (22-29); Chloride 100 mmol/L (96-108); Creatinine Clr Calc Pharmacy 27.5; Estimated Glomerular Filt Rate 30; Glucose Random 345 mg/dL (60-115); Lipase 9 U/L (8-78); Potassium 2.8 mmol/L (3.3-5.1); Sodium 137 mmol/L (135-145); Total Protein 7.7 g/dL (6.5-8.0)
[2023-07-08 14:48] LABS: Troponin-I High Sensitivity < 2.7 ng/L (<3.5-17.0)
[2023-07-08] MEDS: Albuterol Sulfate 2.5 MG, Albuterol/Iprat 2.5/0.5MG 3 ML 3 ML INHALE (14:51)
[2023-07-08 15:00] VITALS: PULSE 77; RESP 21; O2SAT 92
[2023-07-08 15:01] LABS: Band Neutrophils Percent 1 % (3-5); Eosinophils Absolute Manual 0.2 X10*3/uL (0.0-0.4); Eosinophils Percent Manual 1 % (0-4); Lymphocytes Absolute Manual 1.1 X10*3/uL (1.2-4.9); Lymphocytes Percent Manual 5 % (20-40); Monocytes Absolute Manual 0.2 X10*3/uL (0.1-1.2); Monocytes Percent Manual 1 % (2-11); Neutrophils Absolute Manual 20.7 X10*3/uL (2.0-8.3); Neutrophils Percent Manual 92 % (45-73)
[2023-07-08 15:06] LABS: Magnesium 2.1 mg/dL (1.6-2.6)
[2023-07-08 15:12] LABS: Microcytosis 1+ (5-14) /OIF; Platelet Estimate NORMAL (NORMAL); RBC Morphology NOTED
[2023-07-08 15:13] LABS: Platelet Morphology Comment NORMAL; Target Cells 1+ (5-14) /OIF
[2023-07-08 15:27] LABS: Beta-Hydroxybutyrate 0.06 mmol/L (0.02-0.27)
[2023-07-08 15:38] LABS: Appearance Urine Cloudy; Color Urine Yellow; Glucose Urine UA 500 mg/dL (Negative); Leukocyte Esterase Urine Negative (Negative); Nitrite Urine Negative (Negative); PH 5.5 (5.0-9.0); Specific Gravity - Urine 1.025 (1.005-1.025); UMIC TRIGGER UACC YES; Urine Blood Negative (Negative); Urine Ketones Negative (Negative); Urine Protein 100 (2+) mg/dL (Neg-Trace)
--- NOTE | 2023-07-08 15:41 | PC.NURSE ---
Pt in Ct scan at this time, provider oky for IV antibiotics to infuse and then potassium.
[2023-07-08 15:53] LABS: Bacteria Urine 1+ (None Seen); Hyaline Casts Urine 0-2 /LPF (0-2); RBC Urine 0-2 /HPF (0-2); WBC Urine 0-5 /HPF (0-5)
[2023-07-08] MEDS: iohexoL 350 MG/ML 100 ML INFUS..BTL IV (16:11)
[2023-07-08] MEDS: cefTRIAXone sodium 1 GM in 0.9 % Sodium Chloride 50 ML IV (16:19)
[2023-07-08] MEDS: Doxycycline Hyclate 100 MG in 0.9 % Sodium Chloride 250 ML 166.67 MG IV (16:27)
[2023-07-08] MEDS: Potassium Chloride/H20 10 MEQ/100 ML PIGGYBACK 100 MEQ IV ×4 (16:33→21:24)
--- NOTE | 2023-07-08 18:08 | PHA.MEDREC ---
Pharmacy Consult ? Medication Reconciliation Pharmacy has completed the medication reconciliation. Patient does not know what she is taking, reported brought she gave a list to EMS but it is no where to be found. Utilized claim history for med rec. Patient reported OTC meds. Hilary Seymour, ReynaD
[2023-07-08 18:27] VITALS: BP 178/83; PULSE 108; RESP 14; TEMP 37.4; O2SAT 92
--- NOTE | 2023-07-08 18:45 | PM.IMHP ---
History of Present Illness Date of Service: 07/08/23 Chief Complaint: Shortness of breath 78 y/o F patient; PMH COPD not on O2, T2DM on Glipizide, HLD, HTN, GERD; presents from home with family who report patient has been generally unwell since 06/28/2023. The patient herself endorses generalized non-focal abdominal pain, nausea, decreased PO intake, diarrhea, and unspecified weight loss. She denies vomiting. The patient states she initially thought she had COVID, however over the last two days she has noticed her symptoms seem to be worsening. Specifically she endorses a cough productive of yellow/green sputum without hemoptysis and continued significant generalized abdominal pain without the ability to tolerate PO. Family deny known sick contacts. Patient denies: chest pain, syncope. In emergency room; CT angio failed to demonstrate acute PE however showed bilateral upper lobe pneumonias. Admission requested Review of Systems Review of Systems: Admits to chest pain with cough Admits to shortness of breath at rest Denies nausea vomiting diarrhea Denies fever chills PMFSH Medical History Dyspnea on exertion COPD (chronic obstructive pulmonary disease) Smoker Social History Patient Tobacco Use Status: Current someday Tobacco user Tobacco use type: Cigarette Cigarette Packs Per Day: 0.5 Cigarettes Per Day: 2 Years Smoked: 50 Advance Directives: Yes Advance Directives Information Provided: Yes Advance Directives on File: No Meds Allergies Allergy/AdvReac Type Severity Reaction Status Date / Time Penicillins Allergy Rash Verified 07/08/23 13:23 Active Medications: Current Medications Acetaminophen (Acetaminophen 325 Mg Tablet) 650 mg PO Q6H PRN PRN Reason: Pain, Mild (Pain Scale 1-3) Hydrocodone Bitart/Acetaminophen (Hydrocodone Bit/Acetam 5/325 Tablet) 1 tab PO Q4H PRN PRN Reason: Pain, Moderate(Pain Scale 4-6) Albuterol/Ipratropium (Albuterol/Iprat 2.5/0.5mg 3 Ml Ampul.Neb) 3 ml INHALE Q4H PRN PRN Reason: Wheezing Enoxaparin Sodium (Enoxaparin Sodium 30 Mg/0.3 Ml Syringe) 30 mg SUBCUT Q24H [facility] Potassium Chloride (Potassium Chloride/H20) 10 meq in 100 mls @ 100 mls/hr IV Q1H [facility] Stop: 07/08/23 19:14 Last Admin: 07/08/23 17:39 Dose: 100 mls/hr Ceftriaxone Sodium 1 gm/ (Sodium Chloride) 50 mls @ 100 mls/hr IV Q24H [facility] Doxycycline Hyclate 100 mg/ (Sodium Chloride) 250 mls @ 166.67 mls/hr IV Q12H [facility] Lactated Ringer's (Lr) 1,000 mls @ 100 mls/hr IVCONT .Q10H [facility] Methylprednisolone Sodium Succinate (Methylprednisolone Sod Succ 125 Mg/2 Ml Vial) 60 mg IVPUSH Q6H [facility] Ondansetron HCl (Ondansetron Hcl 4 Mg/2 Ml Vial) 4 mg IVPUSH Q8H PRN PRN Reason: Nausea and Vomiting Sodium Chloride (0.9 % Sodium Chloride Flush 3 Ml Syringe) 3 ml IVFLUSH QSHIFT [facility] Home Medications Medication Instructions Recorded Confirmed Last Taken Type albuterol sulfate 90 mcg/actuation 2 puff inhalation Q6H PRN 02/23/23 07/08/23 Unknown History aerosol inhaler Shortness Of Breath Or Wheezing atorvastatin 40 mg tablet 40 mg PO DAILY 02/23/23 07/08/23 Unknown History cholecalciferol (vitamin D3) 50 50 mcg PO DAILY 02/23/23 07/08/23 Unknown History mcg (2,000 unit) capsule hydralazine 50 mg tablet 50 mg PO TID 02/23/23 07/08/23 Unknown History lisinopril 30 mg tablet 30 mg PO DAILY 02/23/23 07/08/23 Unknown History oxybutynin chloride 10 mg 10 mg PO DAILY 02/23/23 07/08/23 Unknown History tablet,extended release 24 hr trimethoprim 100 mg tablet 100 mg PO BEDTIME 06/15/23 07/08/23 Unknown History cyanocobalamin (vitamin B-12) 1,000 mcg PO DAILY 07/08/23 07/08/23 Unknown History 1,000 mcg tablet gabapentin 300 mg capsule 300 mg PO BID 07/08/23 07/08/23 Unknown History glipizide 10 mg tablet 10 mg PO DAILY 07/08/23 07/08/23 Unknown History metoprolol tartrate 25 mg tablet 25 mg PO BID 07/08/23 07/08/23 Unknown History Physical Exam Vital Signs and Narrative: Vital Signs: Last Vital Signs Temp 99.4 F 07/08/23 18:27 Pulse 108 H 07/08/23 18:27 Resp 14 07/08/23 18:27 BP 178/83 H 07/08/23 18:27 Pulse Ox 92 07/08/23 18:27 O2 Del Method Nasal Cannula 07/08/23 18:27 O2 Flow Rate 2 07/08/23 18:27 BMI result Body Mass Index 30.1 Const: Other: Awake alert able to speak in full sentences Resp: Other: Diminished throughout with scattered rhonchi worse upper lobe; diffuse expiratory wheezes Cardio: Other: Distant heart sounds; no S4; positive S1-S2; no S3 murmurs rubs or gallops GI: Other: Obese soft nontender positive bowel sounds Extrem: Other: Trace edema bilaterally Results Labs 07/08/23 14:15 07/08/23 14:15 Labs: Laboratory Results - last 24 hr 07/08/23 07/08/23 07/08/23 13:19 13:33 14:15 MCV 76.7 L MCH 25.4 L MCHC 33.1 RDW 17.2 H Plt Count 447 H MPV 11.6 Immature Gran % (Auto) Cancelled Neut % (Auto) Cancelled Lymph % (Auto) Cancelled [place] % (Auto) Cancelled Eos % (Auto) Cancelled Baso % (Auto) Cancelled Lymph # (Auto) Cancelled [place] # (Auto) Cancelled Eos # (Auto) Cancelled Baso # (Auto) Cancelled Abs Immat Gran (auto) Cancelled Absolute Neuts (auto) Cancelled Absolute Nucleated RBC 0.000 Nucleated RBC % (auto) 0.0 Neutrophils % (Manual) 92 H Band Neutrophils % 1 L Lymphocytes % (Manual) 5 L Monocytes % (Manual) 1 L Eosinophils % (Manual) 1 Abs Neuts (Manual) 20.7 H Lymphocytes # (Manual) 1.1 L Monocytes # (Manual) 0.2 Eosinophils # (Manual) 0.2 Platelet Estimate NORMAL Plt Morphology Comment NORMAL RBC Morphology NOTED Microcytosis 1+ (5-14) Target Cells 1+ (5-14) VBG pH VBG pCO2 VBG pO2 VBG HCO3 VBG O2 Saturation VBG Base Excess Anion Gap 17 Estim Creat Clear Calc 27.5 Estimated GFR 30 POC Glucose 386 H* Random Glucose 345 H Lactic Acid 1.9 Calcium 10.4 H Magnesium 2.1 Total Bilirubin 0.4 Direct Bilirubin 0.3 AST 61 H ALT 32 H Alkaline Phosphatase 187 H Troponin I High Sens < 2.7 Total Protein 7.7 Albumin 2.9 L Lipase 9 Beta-Hydroxybutyrate Urine Color Urine Appearance Urine pH Ur Specific [place] Urine Protein Urine Glucose (UA) Urine Ketones Urine Blood Urine Nitrite Ur Leukocyte Esterase Urine RBC Urine WBC Ur Squamous Epith Cells Urine Bacteria Hyaline Casts Urine Yeast Influenza Type A (PCR) NEGATIVE Influenza Type B (PCR) NEGATIVE RSV RNA Qual (PCR) NEGATIVE SARS-CoV-2 RNA (RT-PCR) NEGATIVE 07/08/23 07/08/23 07/08/23 14:23 15:00 15:29 MCV MCH MCHC RDW Plt Count MPV Immature Gran % (Auto) Neut % (Auto) Lymph % (Auto) [place] % (Auto) Eos % (Auto) Baso % (Auto) Lymph # (Auto) [place] # (Auto) Eos # (Auto) Baso # (Auto) Abs Immat Gran (auto) Absolute Neuts (auto) Absolute Nucleated RBC Nucleated RBC % (auto) Neutrophils % (Manual) Band Neutrophils % Lymphocytes % (Manual) Monocytes % (Manual) Eosinophils % (Manual) Abs Neuts (Manual) Lymphocytes # (Manual) Monocytes # (Manual) Eosinophils # (Manual) Platelet Estimate Plt Morphology Comment RBC Morphology Microcytosis Target Cells VBG pH 7.41 VBG pCO2 36 VBG pO2 47 VBG HCO3 23 VBG O2 Saturation 71.0 VBG Base Excess -0.5 Anion Gap Estim Creat Clear Calc Estimated GFR POC Glucose Random Glucose Lactic Acid Calcium Magnesium Total Bilirubin Direct Bilirubin AST ALT Alkaline Phosphatase Troponin I High Sens Total Protein Albumin Lipase Beta-Hydroxybutyrate 0.06 Urine Color Yellow Urine Appearance Cloudy Urine pH 5.5 Ur Specific [place] 1.025 Urine Protein 100 (2+) H Urine Glucose (UA) 500 H Urine Ketones Negative Urine Blood Negative Urine Nitrite Negative Ur Leukocyte Esterase Negative Urine RBC 0-2 Urine WBC 0-5 Ur Squamous Epith Cells 11-20 Urine Bacteria 1+ Hyaline Casts 0-2 Urine Yeast Present Influenza Type A (PCR) Influenza Type B (PCR) RSV RNA Qual (PCR) SARS-CoV-2 RNA (RT-PCR) Imaging Radiologist's Impressions: Impressions Chest X-Ray 07/08/23 14:40 IMPRESSION: Bilateral upper lobe infiltrates. Abdomen/Pelvis CT 07/08/23 16:13 IMPRESSION: Limited due to motion. 1.5 x 2 cm cystic lesion in the neck of the pancreas. Follow-up MR of the pancreas with and without contrast and MRCP recommended. Large esophageal hernia. Fleischner guidelines were followed. Chest CTA 07/08/23 16:13 IMPRESSION: 1. No evidence of pulmonary embolism. Dense bilateral upper lobe and superior segment right lower lobe consolidations with air bronchograms probably representing pneumonia. Large esophageal hernia or intrathoracic stomach. Question small cystic area in the head of the pancreas. 2. VTE: negative. 3. There is a heterogeneous in attenuation nodule in the peripheral pleural right middle lobe measuring 2.4 x 3.4 cm, uncertain etiology. Infectious, inflammatory and neoplastic processes should be considered. Assessment and Plan (1) Multifocal pneumonia: Status: Acute (2) ERICK (acute kidney injury): Status: Acute (3) Diabetes type 2, controlled: Status: Acute Plan 78-year-old female with history of COPD/current smoker type 2 diabetes fairly well controlled with last hemoglobin A1c 8 presents to the emergency room with approximately 10 days of worsening shortness of breath and overall feeling ill. She endorses a productive cough of yellow-green sputum. She states that she continues to smoke 1-2 cigarettes a day in backdrop of known history of non oxygen dependent COPD 1. Multifocal pneumonia -ceftriaxone/doxycycline (1) -pulse dose Solu-Medrol; 125 IV x1. . . 60 IV q.6 thereafter -DuoNebs q.4 hours p.r.n. while awake -titrate O2 to maintain sats greater than or equal to 92% 2. ERICK (question prerenal) -volume repletion with lactated Ringer's -follow renals/divalents -hold COOPER I in morning if no improvement with fluids 3. Diabetes type 2 -acceptable control by her account -lispro correctional scale -adjust as indicated(expected rise in sugar response to steroids) Full code Lovenox Patient will require at least 2 midnights going forward for IV antibiotics to treat multifocal pneumonia; now has O2 requirement. This can not be achieved a lesser acute setting Quality Stroke Does the patient have a stroke diagnosis?: No VTE Prior VTE?: No VTE Risk Level:: Medical - moderate - high VTE Device Contraindication: Treatment Not Indicated VTE Drug Contraindication: N/A - Med Ordered
[2023-07-08] MEDS: HYDROcodone Bit/Acetam 5/325 TABLET 1 TAB PO (19:43)
[2023-07-08] MEDS: methylPREDNISolone Sod Succ 125 MG/2 ML VIAL IVPUSH (19:43)
[2023-07-08] MEDS: Lactated Ringers 1,000 ML 100 ML IVCONT (20:05)
[2023-07-08 21:19] VITALS: BP 156/90; PULSE 111; RESP 25; TEMP 37.6; O2SAT 92
[2023-07-08] MEDS: Metoprolol Tartrate 25 MG TABLET PO (21:20)
[2023-07-08] MEDS: Enoxaparin Sodium 30 MG/0.3 ML SYRINGE SUBCUT (21:21)
[2023-07-08] MEDS: hydrALAZINE HCl 50 MG TABLET PO (21:21)
[2023-07-08] MEDS: Gabapentin 300 MG CAPSULE PO (21:21)
--- NOTE | 2023-07-08 21:26 | PC.NURSE ---
Last bag of potassium hng and bed time meds given. Pt reports some improvement from pain. Productive cough. Pt ready for transport awaiting report confirmation.
[2023-07-08 22:16] VITALS: BP 168/77; PULSE 111; RESP 20; TEMP 36.9; O2SAT 91
[2023-07-09 03:22] VITALS: BP 190/95; PULSE 89; RESP 18; TEMP 36.2; O2SAT 93
[2023-07-09] MEDS: Lactated Ringers 1,000 ML 100 ML IVCONT ×2 (05:49→16:40)
[2023-07-09] MEDS: Doxycycline Hyclate 100 MG in 0.9 % Sodium Chloride 250 ML 166.67 MG IV ×2 (05:49→17:42)
[2023-07-09] MEDS: methylPREDNISolone Sod Succ 125 MG/2 ML VIAL 60 MG IVPUSH ×4 (05:53→23:53)
[2023-07-09 06:24] LABS: MANUAL DIFF FLAG NO
[2023-07-09 06:28] LABS: Basophils Absolute Auto 0.1 X10*3/uL (0.0-0.2); Basophils Percent Auto 0.4 % (0-2); Hematocrit 27.3 % (37.0-47.0); Hemoglobin 9.3 g/dl (12.0-16.0); Imm Gran Abs Auto 1.03 X10*3/uL (0.00-0.03); Imm Gran Pct Auto 3.7 % (0.0-0.4); LEFT SHIFT? 1; Lymphocytes Absolute Auto 1.1 X10*3/uL (1.2-4.9); Lymphocytes Percent Auto 3.8 % (20-40); Mean Corpuscular HGB Conc 34.1 g/dl (31.0-35.0); Mean Corpuscular Hemoglobin 26.1 pg (27.0-33.0); Mean Corpuscular Volume 76.5 fL (80.0-98.0); Mean Platelet Volume 11.2 fL (9.4-12.3); Monocytes Absolute Auto 0.4 X10*3/uL (0.1-1.2); Monocytes Percent Auto 1.6 % (2-11); NRBC Pct Auto 0.1 /100WBC (0.0-0.2); Neutrophils Percent Auto 90.5 % (45-73); Platelet Count 446 X10*3/uL (160-400); Red Blood Count 3.57 X10*6/uL (4.20-5.50); Red Cell Distribution Width 17.2 % (11.0-16.0); SCAN SMEAR FLAG 1; White Blood Count 27.6 X10*3/uL (4.8-10.8)
[2023-07-09 06:49] LABS: Alanine Aminotransferase 23 U/L (0-31); Albumin Level 2.5 g/dL (3.5-5.0); Alkaline Phosphatase 160 U/L (39-117); Anion Gap 18 (12-20); Aspartate Amino Transferase 30 U/L (5-31); Bilirubin Total 0.3 mg/dL (0.0-1.0); Blood Urea Nitrogen 45 mg/dL (9-16); Calcium 9.5 mg/dL (8.4-10.2); Carbon Dioxide 19 mmol/L (22-29); Chloride 105 mmol/L (96-108); Creatinine Clr Calc Pharmacy 37.1; Estimated Glomerular Filt Rate 42; Glucose Random 335 mg/dL (60-115); Potassium 3.9 mmol/L (3.3-5.1); Sodium 138 mmol/L (135-145); Total Protein 7.1 g/dL (6.5-8.0)
[2023-07-09 07:15] VITALS: BP 160/67; PULSE 87; RESP 18; TEMP 36.8; O2SAT 93
[2023-07-09 07:41] LABS: Glucose, Whole Blood 315 mg/dL (60-115)
[2023-07-09 08:01] LABS: Band Neutrophils Percent 12 % (3-5); Lymphocytes Absolute Manual 1.1 X10*3/uL (1.2-4.9); Lymphocytes Percent Manual 4 % (20-40); Neutrophils Absolute Manual 26.5 X10*3/uL (2.0-8.3); Neutrophils Percent Manual 84 % (45-73)
[2023-07-09 08:04] LABS: Hypochromasia 1+ (5-14) /OIF; Platelet Estimate SLIGHTLY DECREASED (NORMAL); Platelet Morphology Comment NORMAL; RBC Morphology NOTED
[2023-07-09] MEDS: Metoprolol Tartrate 25 MG TABLET PO ×2 (08:04→21:37)
[2023-07-09] MEDS: lisinopriL 10 MG TABLET 30 MG PO (08:04)
[2023-07-09] MEDS: Gabapentin 300 MG CAPSULE PO ×2 (08:04→21:37)
[2023-07-09] MEDS: hydrALAZINE HCl 50 MG TABLET PO ×3 (08:04→21:36)
[2023-07-09] MEDS: oxyBUTYnin chloride ER 5 MG TAB.ER.24 10 MG PO (08:04)
[2023-07-09] MEDS: 0.9 % Sodium Chloride Flush 3 ML SYRINGE IVFLUSH ×3 (08:06→23:51)
[2023-07-09] MEDS: Insulin Lispro 100 UNIT/ML 3 ML VIAL SUBCUT ×4 (08:06→21:37)
[2023-07-09 08:56] VITALS: PULSE 104; RESP 18; O2SAT 92
[2023-07-09] MEDS: Albuterol/Iprat 2.5/0.5MG 3 ML AMPUL.NEB INHALE (08:56)
--- NOTE | 2023-07-09 08:56 | MHC.CM.PN ---
PATIENT LIVES ALONE AND RELIES ON A CANE AND A ROLLATER SINCE HER KNEE REPLACEMENT. SHE IS AOX4 AND STATES THAT SHE HAS A HCP THAT NAMES HER DAUGHTER, NILES, THE AGENT. COPY REQUESTED FOR MEDICAL RECORD. SHE USES NO [facility] SERVICES. PATIENT HAS RESCUE INHALERS AT HOME AND HAS STARTED [place] [facility]. SHE HOPES TO DC HOME WITH NO NEED FOR SERVICES. IMM 07/09/23 IN CHART
[2023-07-09 11:06] LABS: Glucose, Whole Blood 290 mg/dL (60-115)
[2023-07-09] MEDS: guaiFEN/Codeine SF 200/20/10ML 10 ML LIQUID PO ×3 (12:01→21:46)
--- NOTE | 2023-07-09 13:39 | HO.PM.IMPN ---
Subjective Subjective Date of Service: 07/09/23 Interval History: Minimal improvement overnight. States chest pain with cough. Also notes pain and dryness of mouth Review of Systems Admits to chest pain with cough Admits to shortness of breath at rest Denies nausea vomiting diarrhea Denies fever chills Physical Exam Vital Signs: Vital Signs: Last Vital Signs Temp 98.3 F 07/09/23 07:15 Pulse 104 H 07/09/23 08:56 Resp 18 07/09/23 08:56 BP 160/67 H 07/09/23 07:15 Pulse Ox 93 07/09/23 07:15 O2 Del Method Nasal Cannula 07/09/23 07:15 O2 Flow Rate 2 07/09/23 07:15 BMI result Body Mass Index 30.1 Const: Other: Awake alert able to speak in full sentences HEENT: Other: Whitish plaque on roof of mouth and base of tongue Resp: Other: Diminished throughout with scattered rhonchi worse upper lobe; diffuse expiratory wheezes Cardio: Other: Distant heart sounds; no S4; positive S1-S2; no S3 murmurs rubs or gallops GI: Other: Obese soft nontender positive bowel sounds Extrem: Other: Trace edema bilaterally Objective Data Active Medications Acetaminophen (Acetaminophen 325 Mg Tablet) 650 mg PO Q6H PRN PRN Reason: Pain, Mild (Pain Scale 1-3) Hydrocodone Bitart/Acetaminophen (Hydrocodone Bit/Acetam 5/325 Tablet) 1 tab PO Q4H PRN PRN Reason: Pain, Moderate(Pain Scale 4-6) Last Admin: 07/08/23 19:43 Dose: 1 tab Documented By: MARY ELLEN Albuterol/Ipratropium (Albuterol/Iprat 2.5/0.5mg 3 Ml Ampul.Neb) 3 ml INHALE Q4H PRN PRN Reason: Wheezing Last Admin: 07/09/23 08:56 Dose: 3 ml Documented By: TOBIAS Atorvastatin Calcium (Atorvastatin Calcium 40 Mg Tablet) 40 mg PO BEDTIME ABDULKADIR Dextrose (Dextrose 50 % 25 Gm/50 Ml Syringe) 25 gm IVPUSH Q15M PRN; Protocol PRN Reason: per Hypoglycemia Standing Ord. Enoxaparin Sodium (Enoxaparin Sodium 30 Mg/0.3 Ml Syringe) 30 mg SUBCUT Q24H ABDULKADIR Last Admin: 07/08/23 21:21 Dose: 30 mg Documented By: MARY ELLEN Gabapentin (Gabapentin 300 Mg Capsule) 300 mg PO BID [facility] Last Admin: 07/09/23 08:04 Dose: 300 mg Documented By: ALEX Glucose (Glucose Gel 15 Gm Gel..Gram.) 15 gm PO Q15M PRN; Protocol PRN Reason: per Hypoglycemia Standing Ord. Guaifenesin/Codeine Phosphate (Guaifen/Codeine Sf 200/20/10ml 10 Ml Liquid) 10 ml PO Q4H PRN PRN Reason: Cough Last Admin: 07/09/23 12:01 Dose: 10 ml Documented By: ALEX Hydralazine HCl (Hydralazine Hcl 50 Mg Tablet) 50 mg PO TID [facility]; Protocol Last Admin: 07/09/23 08:04 Dose: 50 mg Documented By: ALEX Ceftriaxone Sodium 1 gm/ (Sodium Chloride) 50 mls @ 100 mls/hr IV Q24H [facility] Doxycycline Hyclate 100 mg/ (Sodium Chloride) 250 mls @ 166.67 mls/hr IV Q12H [facility] Last Infusion: 07/09/23 07:27 Dose: Infused Documented By: ALEX Lactated Ringer's (Lr) 1,000 mls @ 100 mls/hr IVCONT .Q10H [facility] Last Infusion: 07/09/23 07:28 Dose: 100 mls/hr Documented By: ALEX Insulin Human Lispro (Insulin Lispro 100 Unit/Ml 3 Ml Vial) 0 unit SUBCUT QIDACHS [facility]; Protocol Last Admin: 07/09/23 12:00 Dose: 6 unit Documented By: ALEX Lisinopril (Lisinopril 10 Mg Tablet) 30 mg PO DAILY [facility]; Protocol Last Admin: 07/09/23 08:04 Dose: 30 mg Documented By: ALEX Methylprednisolone Sodium Succinate (Methylprednisolone Sod Succ 125 Mg/2 Ml Vial) 60 mg IVPUSH Q6H [facility] Last Admin: 07/09/23 12:00 Dose: 60 mg Documented By: ALEX Comments: Metoprolol Tartrate (Metoprolol Tartrate 25 Mg Tablet) 25 mg PO BID [facility]; Protocol Last Admin: 07/09/23 08:04 Dose: 25 mg Documented By: ALEX Nystatin (Nystatin Oral Susp 500,000 Unit/5 Ml Oral.Susp) 200,000 unit BUCCAL QID [facility]; Protocol Ondansetron HCl (Ondansetron Hcl 4 Mg/2 Ml Vial) 4 mg IVPUSH Q8H PRN PRN Reason: Nausea and Vomiting Oxybutynin Chloride (Oxybutynin Chloride Er 5 Mg Tab.Er.24) 10 mg PO DAILY [facility] Last Admin: 07/09/23 08:04 Dose: 10 mg Documented By: ALEX Sodium Chloride (0.9 % Sodium Chloride Flush 3 Ml Syringe) 3 ml IVFLUSH QSHIFT [facility] Last Admin: 07/09/23 08:06 Dose: 3 ml Documented By: ALEX Vitamin D (Cholecalciferol (Vitamin D3) 25 Mcg Tablet) 50 mcg PO BEDTIME [facility] Labs 07/09/23 06:18 07/09/23 06:19 Labs: Laboratory Results - last 24 hr 07/08/23 07/08/23 07/08/23 13:33 14:15 14:23 MCV 76.7 L MCH 25.4 L MCHC 33.1 RDW 17.2 H Plt Count 447 H MPV 11.6 Immature Gran % (Auto) Cancelled Neut % (Auto) Cancelled Lymph % (Auto) Cancelled Bates % (Auto) Cancelled Eos % (Auto) Cancelled Baso % (Auto) Cancelled Lymph # (Auto) Cancelled Bates # (Auto) Cancelled Eos # (Auto) Cancelled Baso # (Auto) Cancelled Abs Immat Gran (auto) Cancelled Absolute Neuts (auto) Cancelled Absolute Nucleated RBC 0.000 Nucleated RBC % (auto) 0.0 Neutrophils % (Manual) 92 H Band Neutrophils % 1 L Lymphocytes % (Manual) 5 L Monocytes % (Manual) 1 L Eosinophils % (Manual) 1 Abs Neuts (Manual) 20.7 H Lymphocytes # (Manual) 1.1 L Monocytes # (Manual) 0.2 Eosinophils # (Manual) 0.2 Platelet Estimate NORMAL Plt Morphology Comment NORMAL RBC Morphology NOTED Hypochromasia Microcytosis 1+ (5-14) Target Cells 1+ (5-14) VBG pH 7.41 VBG pCO2 36 VBG pO2 47 VBG HCO3 23 VBG O2 Saturation 71.0 VBG Base Excess -0.5 Anion Gap 17 Estim Creat Clear Calc 27.5 Estimated GFR 30 POC Glucose Random Glucose 345 H Lactic Acid 1.9 Calcium 10.4 H Magnesium 2.1 Total Bilirubin 0.4 Direct Bilirubin 0.3 AST 61 H ALT 32 H Alkaline Phosphatase 187 H Troponin I High Sens < 2.7 Total Protein 7.7 Albumin 2.9 L Lipase 9 Beta-Hydroxybutyrate Urine Color Urine Appearance Urine pH Ur Specific Dinosaur Urine Protein Urine Glucose (UA) Urine Ketones Urine Blood Urine Nitrite Ur Leukocyte Esterase Urine RBC Urine WBC Ur Squamous Epith Cells Urine Bacteria Hyaline Casts Urine Yeast Influenza Type A (PCR) NEGATIVE Influenza Type B (PCR) NEGATIVE RSV RNA Qual (PCR) NEGATIVE SARS-CoV-2 RNA (RT-PCR) NEGATIVE 07/08/23 07/08/23 07/09/23 15:00 15:29 06:18 MCV 76.5 L MCH 26.1 L MCHC 34.1 RDW 17.2 H Plt Count 446 H MPV 11.2 Immature Gran % (Auto) 3.7 H Neut % (Auto) 90.5 H Lymph % (Auto) 3.8 L [place] % (Auto) 1.6 L Eos % (Auto) 0.0 Baso % (Auto) 0.4 Lymph # (Auto) 1.1 L [place] # (Auto) 0.4 Eos # (Auto) 0.0 Baso # (Auto) 0.1 Abs Immat Gran (auto) 1.03 H Absolute Neuts (auto) 25.0 H Absolute Nucleated RBC 0.020 H Nucleated RBC % (auto) 0.1 Neutrophils % (Manual) 84 H Band Neutrophils % 12 H Lymphocytes % (Manual) 4 L Monocytes % (Manual) Eosinophils % (Manual) Abs Neuts (Manual) 26.5 H Lymphocytes # (Manual) 1.1 L Monocytes # (Manual) Eosinophils # (Manual) Platelet Estimate SLIGHTLY DECREASED Plt Morphology Comment NORMAL RBC Morphology NOTED Hypochromasia 1+ (5-14) Microcytosis Target Cells VBG pH VBG pCO2 VBG pO2 VBG HCO3 VBG O2 Saturation VBG Base Excess Anion Gap Estim Creat Clear Calc Estimated GFR POC Glucose Random Glucose Lactic Acid Calcium Magnesium Total Bilirubin Direct Bilirubin AST ALT Alkaline Phosphatase Troponin I High Sens Total Protein Albumin Lipase Beta-Hydroxybutyrate 0.06 Urine Color Yellow Urine Appearance Cloudy Urine pH 5.5 Ur Specific Dinosaur 1.025 Urine Protein 100 (2+) H Urine Glucose (UA) 500 H Urine Ketones Negative Urine Blood Negative Urine Nitrite Negative Ur Leukocyte Esterase Negative Urine RBC 0-2 Urine WBC 0-5 Ur Squamous Epith Cells 11-20 Urine Bacteria 1+ Hyaline Casts 0-2 Urine Yeast Present Influenza Type A (PCR) Influenza Type B (PCR) RSV RNA Qual (PCR) SARS-CoV-2 RNA (RT-PCR) 07/09/23 07/09/23 07/09/23 06:19 07:37 10:56 MCV MCH MCHC RDW Plt Count MPV Immature Gran % (Auto) Neut % (Auto) Lymph % (Auto) Bates % (Auto) Eos % (Auto) Baso % (Auto) Lymph # (Auto) Bates # (Auto) Eos # (Auto) Baso # (Auto) Abs Immat Gran (auto) Absolute Neuts (auto) Absolute Nucleated RBC Nucleated RBC % (auto) Neutrophils % (Manual) Band Neutrophils % Lymphocytes % (Manual) Monocytes % (Manual) Eosinophils % (Manual) Abs Neuts (Manual) Lymphocytes # (Manual) Monocytes # (Manual) Eosinophils # (Manual) Platelet Estimate Plt Morphology Comment RBC Morphology Hypochromasia Microcytosis Target Cells VBG pH VBG pCO2 VBG pO2 VBG HCO3 VBG O2 Saturation VBG Base Excess Anion Gap 18 Estim Creat Clear Calc 37.1 Estimated GFR 42 POC Glucose 315 H 290 H Random Glucose 335 H Lactic Acid Calcium 9.5 D Magnesium Total Bilirubin 0.3 Direct Bilirubin AST 30 ALT 23 Alkaline Phosphatase 160 H Troponin I High Sens Total Protein 7.1 Albumin 2.5 L Lipase Beta-Hydroxybutyrate Urine Color Urine Appearance Urine pH Ur Specific Dinosaur Urine Protein Urine Glucose (UA) Urine Ketones Urine Blood Urine Nitrite Ur Leukocyte Esterase Urine RBC Urine WBC Ur Squamous Epith Cells Urine Bacteria Hyaline Casts Urine Yeast Influenza Type A (PCR) Influenza Type B (PCR) RSV RNA Qual (PCR) SARS-CoV-2 RNA (RT-PCR) Assessment and Plan (1) Multifocal pneumonia: Status: Acute (2) Diabetes type 2, controlled: Status: Acute (3) Oral thrush: Status: Acute Plan 78-year-old female with history of COPD/current smoker type 2 diabetes fairly well controlled with last hemoglobin A1c 8 presents to the emergency room with approximately 10 days of worsening shortness of breath and overall feeling ill. She endorses a productive cough of yellow-green sputum. She states that she continues to smoke 1-2 cigarettes a day in backdrop of known history of non oxygen dependent COPD 1. Multifocal pneumonia -ceftriaxone/doxycycline (2) -pulse dose Solu-Medrol; 125 IV x1. . . 60 IV q.6 thereafter -DuoNebs q.4 hours p.r.n. while awake -titrate O2 to maintain sats greater than or equal to 92% 2. Oral thrush -nystatin swish and swallow 3. ERICK (question prerenal) -improved with volume repletion -follow renals/divalents 4. Diabetes type 2 -acceptable control by her account -lispro correctional scale -adjust as indicated(expected rise in sugar response to steroids) Full code [place] Patient requires ongoing hospitalization for IV antibiotics to treat multifocal pneumonia and provide supplemental O2 Quality Stroke Does the patient have a stroke diagnosis?: No VTE Prior VTE?: No VTE Risk Level:: Medical - moderate - high VTE Device Contraindication: Treatment Not Indicated VTE Drug Contraindication: N/A - Med Ordered
[2023-07-09] MEDS: Nystatin Oral Susp 500,000 UNIT/5 ML ORAL.SUSP 200000 UNIT BUCCAL ×3 (14:25→21:39)
[2023-07-09 15:19] VITALS: BP 152/80; PULSE 79; RESP 18; TEMP 36.9; O2SAT 93
[2023-07-09] MEDS: Omeprazole 20 MG CAPSULE.DR PO (16:41)
[2023-07-09] MEDS: cefTRIAXone sodium 1 GM in 0.9 % Sodium Chloride 50 ML IV (16:42)
[2023-07-09 16:45] LABS: Glucose, Whole Blood 255 mg/dL (60-115)
[2023-07-09 20:00] VITALS: BP 172/70; PULSE 90; RESP 19; TEMP 37.1; O2SAT 93
[2023-07-09 21:09] LABS: Glucose, Whole Blood 255 mg/dL (60-115)
[2023-07-09 21:33] VITALS: BP 172/84; PULSE 88
[2023-07-09] MEDS: Enoxaparin Sodium 40 MG/0.4 ML SYRINGE SUBCUT (21:35)
[2023-07-09] MEDS: Atorvastatin Calcium 40 MG TABLET PO (21:36)
[2023-07-09] MEDS: Cholecalciferol (Vitamin D3) 25 MCG TABLET 50 MCG PO (21:37)
--- NOTE | 2023-07-09 21:54 | PC.NURSE ---
BP elevated 172/84 pulse 88,Hydralazine and Metroprolol administered as oredered,patient asymptomatic,Dr. Herrera notified
[2023-07-10] VITALS (7 sets, daily range): BP systolic 158–185; BP diastolic 80–96; PULSE 78–99; RESP 16–20; TEMP 36–36.2; O2SAT 93–98
[2023-07-10] MEDS: Lactated Ringers 1,000 ML 100 ML IVCONT (03:03)
[2023-07-10] MEDS: methylPREDNISolone Sod Succ 125 MG/2 ML VIAL 60 MG IVPUSH ×3 (05:26→17:15)
[2023-07-10] MEDS: Doxycycline Hyclate 100 MG in 0.9 % Sodium Chloride 250 ML 166.67 MG IV ×2 (05:29→17:15)
[2023-07-10 05:51] LABS: Basophils Absolute Auto 0.1 X10*3/uL (0.0-0.2); Basophils Percent Auto 0.2 % (0-2); Hematocrit 28.3 % (37.0-47.0); Hemoglobin 9.4 g/dl (12.0-16.0); Imm Gran Abs Auto 0.66 X10*3/uL (0.00-0.03); Imm Gran Pct Auto 2.5 % (0.0-0.4); Lymphocytes Percent Auto 3.7 % (20-40); MANUAL DIFF FLAG SCAN; Mean Corpuscular HGB Conc 33.2 g/dl (31.0-35.0); Mean Corpuscular Hemoglobin 25.5 pg (27.0-33.0); Mean Corpuscular Volume 76.9 fL (80.0-98.0); Mean Platelet Volume 11.4 fL (9.4-12.3); Monocytes Absolute Auto 0.5 X10*3/uL (0.1-1.2); Monocytes Percent Auto 1.8 % (2-11); Neutrophils Absolute Auto 23.9 x10*3/uL (2.0-8.3); Neutrophils Percent Auto 91.8 % (45-73); Platelet Count 408 X10*3/uL (160-400); Red Blood Count 3.68 X10*6/uL (4.20-5.50); Red Cell Distribution Width 17.4 % (11.0-16.0); SCAN SMEAR FLAG 1; White Blood Count 26.1 X10*3/uL (4.8-10.8)
[2023-07-10 06:04] LABS: Alanine Aminotransferase 22 U/L (0-31); Albumin Level 2.6 g/dL (3.5-5.0); Alkaline Phosphatase 144 U/L (39-117); Anion Gap 18 (12-20); Aspartate Amino Transferase 28 U/L (5-31); Bilirubin Total 0.3 mg/dL (0.0-1.0); Blood Urea Nitrogen 43 mg/dL (9-16); Calcium 9.7 mg/dL (8.4-10.2); Carbon Dioxide 18 mmol/L (22-29); Chloride 106 mmol/L (96-108); Creatinine Clr Calc Pharmacy 45.6; Estimated Glomerular Filt Rate 54; Glucose Random 278 mg/dL (60-115); Potassium 3.8 mmol/L (3.3-5.1); Sodium 138 mmol/L (135-145); Total Protein 7.1 g/dL (6.5-8.0)
[2023-07-10 06:12] LABS: SLIDE REVIEW VERIFIED
[2023-07-10 07:27] LABS: Glucose, Whole Blood 284 mg/dL (60-115)
[2023-07-10] MEDS: Nystatin Oral Susp 500,000 UNIT/5 ML ORAL.SUSP 200000 UNIT BUCCAL ×4 (07:52→19:48)
[2023-07-10] MEDS: hydrALAZINE HCl 50 MG TABLET PO ×3 (07:53→19:50)
[2023-07-10] MEDS: oxyBUTYnin chloride ER 5 MG TAB.ER.24 10 MG PO (07:53)
[2023-07-10] MEDS: Omeprazole 20 MG CAPSULE.DR PO ×2 (07:53→15:53)
[2023-07-10] MEDS: Insulin Lispro 100 UNIT/ML 3 ML VIAL SUBCUT ×4 (07:53→20:38)
[2023-07-10] MEDS: lisinopriL 10 MG TABLET 30 MG PO (07:53)
[2023-07-10] MEDS: Metoprolol Tartrate 25 MG TABLET PO ×2 (07:54→19:50)
[2023-07-10] MEDS: Gabapentin 300 MG CAPSULE PO ×2 (07:54→19:50)
[2023-07-10] MEDS: guaiFEN/Codeine SF 200/20/10ML 10 ML LIQUID PO ×3 (08:06→19:59)
[2023-07-10 11:12] LABS: Glucose, Whole Blood 273 mg/dL (60-115)
--- NOTE | 2023-07-10 12:35 | P.PNIM_ITS ---
Subjective Subjective Date of Service: 07/10/23 Interval History: Slowly improving. Remains tolerant of therapies Review of Systems Admits to chest pain with cough Admits to shortness of breath at rest Denies nausea vomiting diarrhea Denies fever chills Physical Exam 2 Vital Signs: Vital Signs: Last Vital Signs Temp 96.8 F 07/10/23 07:47 Pulse 78 07/10/23 07:47 Resp 16 07/10/23 07:47 BP 158/92 H 07/10/23 07:47 Pulse Ox 95 07/10/23 07:47 O2 Del Method Nasal Cannula 07/10/23 07:47 O2 Flow Rate 2 07/10/23 07:47 BMI result Body Mass Index 30.1 Const: Other: Awake alert able to speak in full sentences HEENT: Other: Whitish plaque on roof of mouth and base of tongue Resp: Other: Diminished throughout with scattered rhonchi worse upper lobe; diffuse expiratory wheezes Cardio: Other: Distant heart sounds; no S4; positive S1-S2; no S3 murmurs rubs or gallops GI: Other: Obese soft nontender positive bowel sounds Extrem: Other: Trace edema bilaterally Objective Data Active Medications Acetaminophen (Acetaminophen 325 Mg Tablet) 650 mg PO Q6H PRN PRN Reason: Pain, Mild (Pain Scale 1-3) Hydrocodone Bitart/Acetaminophen (Hydrocodone Bit/Acetam 5/325 Tablet) 1 tab PO Q4H PRN PRN Reason: Pain, Moderate(Pain Scale 4-6) Last Admin: 07/08/23 19:43 Dose: 1 tab Documented By: MARY ELLEN Albuterol/Ipratropium (Albuterol/Iprat 2.5/0.5mg 3 Ml Ampul.Neb) 3 ml INHALE Q4H PRN PRN Reason: Wheezing Last Admin: 07/09/23 08:56 Dose: 3 ml Documented By: TOBIAS Atorvastatin Calcium (Atorvastatin Calcium 40 Mg Tablet) 40 mg PO BEDTIME [facility] Last Admin: 07/09/23 21:36 Dose: 40 mg Documented By: LIVAN Dextrose (Dextrose 50 % 25 Gm/50 Ml Syringe) 25 gm IVPUSH Q15M PRN; Protocol PRN Reason: per Hypoglycemia Standing Ord. Enoxaparin Sodium (Enoxaparin Sodium 40 Mg/0.4 Ml Syringe) 40 mg SUBCUT Q24H [facility] Last Admin: 07/09/23 21:35 Dose: 40 mg Documented By: LIVAN Gabapentin (Gabapentin 300 Mg Capsule) 300 mg PO BID [facility] Last Admin: 07/10/23 07:54 Dose: 300 mg Documented By: ALEX Glucose (Glucose Gel 15 Gm Gel..Gram.) 15 gm PO Q15M PRN; Protocol PRN Reason: per Hypoglycemia Standing Ord. Guaifenesin/Codeine Phosphate (Guaifen/Codeine Sf 200/20/10ml 10 Ml Liquid) 10 ml PO Q4H PRN PRN Reason: Cough Last Admin: 07/10/23 08:06 Dose: 10 ml Documented By: ALEX Hydralazine HCl (Hydralazine Hcl 50 Mg Tablet) 50 mg PO TID [facility]; Protocol Last Admin: 07/10/23 07:53 Dose: 50 mg Documented By: ALEX Ceftriaxone Sodium 1 gm/ (Sodium Chloride) 50 mls @ 100 mls/hr IV Q24H [facility] Last Infusion: 07/09/23 17:31 Dose: Infused Documented By: LIVAN Doxycycline Hyclate 100 mg/ (Sodium Chloride) 250 mls @ 166.67 mls/hr IV Q12H [facility] Last Infusion: 07/10/23 07:00 Dose: Infused Documented By: EDYTA Insulin Human Lispro (Insulin Lispro 100 Unit/Ml 3 Ml Vial) 0 unit SUBCUT QIDACHS [facility]; Protocol Last Admin: 07/10/23 12:02 Dose: 6 unit Documented By: ALEX Lisinopril (Lisinopril 10 Mg Tablet) 30 mg PO DAILY [facility]; Protocol Last Admin: 07/10/23 07:53 Dose: 30 mg Documented By: ALEX Methylprednisolone Sodium Succinate (Methylprednisolone Sod Succ 125 Mg/2 Ml Vial) 60 mg IVPUSH Q6H [facility] Last Admin: 07/10/23 05:26 Dose: 60 mg Documented By: EDYTA Metoprolol Tartrate (Metoprolol Tartrate 25 Mg Tablet) 25 mg PO BID [facility]; Protocol Last Admin: 07/10/23 07:54 Dose: 25 mg Documented By: ALEX Nystatin (Nystatin Oral Susp 500,000 Unit/5 Ml Oral.Susp) 200,000 unit BUCCAL QID [facility]; Protocol Last Admin: 07/10/23 07:52 Dose: 200,000 unit Documented By: ALEX Omeprazole (Omeprazole 20 Mg Capsule.Dr) 20 mg PO BIDAC [facility] Last Admin: 07/10/23 07:53 Dose: 20 mg Documented By: ALEX Ondansetron HCl (Ondansetron Hcl 4 Mg/2 Ml Vial) 4 mg IVPUSH Q8H PRN PRN Reason: Nausea and Vomiting Oxybutynin Chloride (Oxybutynin Chloride Er 5 Mg Tab.Er.24) 10 mg PO DAILY [facility] Last Admin: 07/10/23 07:53 Dose: 10 mg Documented By: ALEX Senna (Sennosides 8.6 Mg Tablet) 17.2 mg PO Q24H PRN PRN Reason: constipation Sodium Chloride (0.9 % Sodium Chloride Flush 3 Ml Syringe) 3 ml IVFLUSH QSHIFT [facility] Last Admin: 07/10/23 07:54 Dose: Not Given Documented By: ALEX Non-Admin Reason: IV Running Vitamin D (Cholecalciferol (Vitamin D3) 25 Mcg Tablet) 50 mcg PO BEDTIME [facility] Last Admin: 07/09/23 21:37 Dose: 50 mcg Documented By: BEIT Labs 07/10/23 05:24 07/10/23 05:24 Labs: Laboratory Results - last 24 hr 07/09/23 07/09/23 07/10/23 16:34 20:58 05:24 MCV 76.9 L MCH 25.5 L MCHC 33.2 RDW 17.4 H Plt Count 408 H MPV 11.4 Immature Gran % (Auto) 2.5 H Neut % (Auto) 91.8 H Lymph % (Auto) 3.7 L [place] % (Auto) 1.8 L Eos % (Auto) 0.0 Baso % (Auto) 0.2 Lymph # (Auto) 1.0 L [place] # (Auto) 0.5 Eos # (Auto) 0.0 Baso # (Auto) 0.1 Abs Immat Gran (auto) 0.66 H Absolute Neuts (auto) 23.9 H Absolute Nucleated RBC 0.000 Nucleated RBC % (auto) 0.0 Smear Tech's Comments VERIFIED Anion Gap 18 Estim Creat Clear Calc 45.6 Estimated GFR 54 POC Glucose 255 H 255 H Random Glucose 278 H Calcium 9.7 Total Bilirubin 0.3 AST 28 ALT 22 Alkaline Phosphatase 144 H Total Protein 7.1 Albumin 2.6 L 07/10/23 07/10/23 07:22 11:08 MCV MCH MCHC RDW Plt Count MPV Immature Gran % (Auto) Neut % (Auto) Lymph % (Auto) [place] % (Auto) Eos % (Auto) Baso % (Auto) Lymph # (Auto) [place] # (Auto) Eos # (Auto) Baso # (Auto) Abs Immat Gran (auto) Absolute Neuts (auto) Absolute Nucleated RBC Nucleated RBC % (auto) Smear Tech's Comments Anion Gap Estim Creat Clear Calc Estimated GFR POC Glucose 284 H 273 H Random Glucose Calcium Total Bilirubin AST ALT Alkaline Phosphatase Total Protein Albumin Microbiology Microbiology Results: Microbiology 07/08/23 15:00 Blood Culture - Preliminary Blood - Venous No growth after 24 hours. 07/08/23 15:00 Blood Culture - Preliminary Blood - Venous No growth after 24 hours. Assessment and Plan (1) Multifocal pneumonia: Status: Acute Plan 78-year-old female with history of COPD/current smoker type 2 diabetes fairly well controlled with last hemoglobin A1c 8 presents to the emergency room with approximately 10 days of worsening shortness of breath and overall feeling ill. She endorses a productive cough of yellow-green sputum. She states that she continues to smoke 1-2 cigarettes a day in backdrop of known history of non oxygen dependent COPD 1. Multifocal pneumonia -ceftriaxone/doxycycline (3) -pulse dose Solu-Medrol; 125 IV x1. . . 60 IV q.6 thereafter -DuoNebs q.4 hours p.r.n. while awake -titrate O2 to maintain sats greater than or equal to 92% 2. Oral thrush -nystatin swish and swallow 3. ERICK (question prerenal) -improved with volume repletion -follow renals/divalents 4. Diabetes type 2 -acceptable control by her account -lispro correctional scale -adjust as indicated(expected rise in sugar response to steroids) Full code Lovenox Patient requires ongoing hospitalization for IV antibiotics to treat multifocal pneumonia and provide supplemental O2 Quality Stroke Does the patient have a stroke diagnosis?: No VTE Prior VTE?: No VTE Risk Level:: Medical - moderate - high VTE Device Contraindication: Treatment Not Indicated VTE Drug Contraindication: N/A - Med Ordered
[2023-07-10] MEDS: Sennosides 8.6 MG TABLET 17.2 MG PO (13:41)
[2023-07-10] MEDS: cefTRIAXone sodium 1 GM in 0.9 % Sodium Chloride 50 ML IV (15:52)
[2023-07-10] MEDS: 0.9 % Sodium Chloride Flush 3 ML SYRINGE IVFLUSH (15:52)
[2023-07-10 16:28] LABS: Glucose, Whole Blood 225 mg/dL (60-115)
--- NOTE | 2023-07-10 17:12 | PC.NURSE ---
BP elevated 172/[address] Morel notified,patient asymptomatic
[2023-07-10] MEDS: Enoxaparin Sodium 40 MG/0.4 ML SYRINGE SUBCUT (19:49)
[2023-07-10] MEDS: Atorvastatin Calcium 40 MG TABLET PO (19:50)
[2023-07-10] MEDS: Cholecalciferol (Vitamin D3) 25 MCG TABLET 50 MCG PO (19:50)
--- NOTE | 2023-07-10 20:10 | PC.NURSE ---
BP elevated 185/89 pulse 89 ,patient asymptomatic,metroprolol and hydralazine administered as ordered,dr. Herrera notified
[2023-07-10 20:35] LABS: Glucose, Whole Blood 261 mg/dL (60-115)
[2023-07-11] VITALS (7 sets, daily range): BP systolic 144–182; BP diastolic 70–90; PULSE 82–109; RESP 14–19; TEMP 36.1–36.4; O2SAT 91–96
[2023-07-11] MEDS: 0.9 % Sodium Chloride Flush 3 ML SYRINGE IVFLUSH ×3 (00:14→16:02)
[2023-07-11] MEDS: guaiFEN/Codeine SF 200/20/10ML 10 ML LIQUID PO ×3 (00:15→21:46)
[2023-07-11] MEDS: methylPREDNISolone Sod Succ 125 MG/2 ML VIAL 60 MG IVPUSH ×4 (00:15→18:21)
[2023-07-11] MEDS: Albuterol/Iprat 2.5/0.5MG 3 ML AMPUL.NEB INHALE (01:30)
[2023-07-11] MEDS: Doxycycline Hyclate 100 MG in 0.9 % Sodium Chloride 250 ML 166.67 MG IV ×2 (04:55→16:42)
[2023-07-11 06:26] LABS: Basophils Percent Auto 0.1 % (0-2); Hematocrit 33.7 % (37.0-47.0); Imm Gran Abs Auto 0.21 X10*3/uL (0.00-0.03); Imm Gran Pct Auto 1.4 % (0.0-0.4); Lymphocytes Absolute Auto 0.9 X10*3/uL (1.2-4.9); Lymphocytes Percent Auto 6.1 % (20-40); MANUAL DIFF FLAG SCAN; Mean Corpuscular HGB Conc 32.6 g/dl (31.0-35.0); Mean Corpuscular Hemoglobin 25.6 pg (27.0-33.0); Mean Corpuscular Volume 78.4 fL (80.0-98.0); Mean Platelet Volume 11.9 fL (9.4-12.3); Monocytes Absolute Auto 0.2 X10*3/uL (0.1-1.2); Monocytes Percent Auto 1.1 % (2-11); Neutrophils Absolute Auto 13.5 x10*3/uL (2.0-8.3); Neutrophils Percent Auto 91.3 % (45-73); Platelet Count 446 X10*3/uL (160-400); Red Cell Distribution Width 17.6 % (11.0-16.0); SCAN SMEAR FLAG 1; White Blood Count 14.9 X10*3/uL (4.8-10.8)
[2023-07-11 07:23] LABS: Glucose, Whole Blood 390 mg/dL (60-115)
[2023-07-11 07:29] LABS: SLIDE REVIEW VERIFIED
[2023-07-11] MEDS: Insulin Lispro 100 UNIT/ML 3 ML VIAL SUBCUT ×4 (08:14→21:45)
[2023-07-11] MEDS: oxyBUTYnin chloride ER 5 MG TAB.ER.24 10 MG PO (08:15)
[2023-07-11] MEDS: Nystatin Oral Susp 500,000 UNIT/5 ML ORAL.SUSP 200000 UNIT BUCCAL ×4 (08:15→20:10)
[2023-07-11] MEDS: Omeprazole 20 MG CAPSULE.DR PO ×2 (08:16→16:02)
[2023-07-11] MEDS: hydrALAZINE HCl 50 MG TABLET PO ×3 (08:16→20:08)
[2023-07-11] MEDS: Gabapentin 300 MG CAPSULE PO ×2 (08:16→20:09)
[2023-07-11] MEDS: lisinopriL 10 MG TABLET 30 MG PO (08:16)
[2023-07-11] MEDS: Metoprolol Tartrate 25 MG TABLET PO ×2 (08:16→20:09)
--- NOTE | 2023-07-11 09:46 | P.PNIM_ITS ---
Subjective Subjective Date of Service: 07/11/23 Interval History: Follow-up pneumonia Slowly improving. Remains tolerant of therapies Review of Systems Denies nausea vomiting diarrhea Denies fever chills Physical Exam 2 Vital Signs: Vital Signs: Last Vital Signs Temp 97.3 F 07/11/23 07:03 Pulse 89 07/11/23 07:03 Resp 14 07/11/23 07:03 BP 150/70 H 07/11/23 07:03 Pulse Ox 93 07/11/23 07:03 O2 Del Method Nasal Cannula 07/11/23 07:03 O2 Flow Rate 2 07/11/23 07:03 BMI result Body Mass Index 30.1 Appearing in no acute distress lung sounds are clear to auscultation heart regular rate rhythm, clear S1, S2 positive bowel sounds, abdomen is soft, nontender neuro patient is alert x3, no focal deficits Objective Data Active Medications Acetaminophen (Acetaminophen 325 Mg Tablet) 650 mg PO Q6H PRN PRN Reason: Pain, Mild (Pain Scale 1-3) Hydrocodone Bitart/Acetaminophen (Hydrocodone Bit/Acetam 5/325 Tablet) 1 tab PO Q4H PRN PRN Reason: Pain, Moderate(Pain Scale 4-6) Last Admin: 07/08/23 19:43 Dose: 1 tab Documented By: MARY ELLEN Albuterol/Ipratropium (Albuterol/Iprat 2.5/0.5mg 3 Ml Ampul.Neb) 3 ml INHALE Q4H PRN PRN Reason: Wheezing Last Admin: 07/11/23 01:30 Dose: 3 ml Documented By: MARIANELA Atorvastatin Calcium (Atorvastatin Calcium 40 Mg Tablet) 40 mg PO BEDTIME [facility] Last Admin: 07/10/23 19:50 Dose: 40 mg Documented By: LIVAN Dextrose (Dextrose 50 % 25 Gm/50 Ml Syringe) 25 gm IVPUSH Q15M PRN; Protocol PRN Reason: per Hypoglycemia Standing Ord. Enoxaparin Sodium (Enoxaparin Sodium 40 Mg/0.4 Ml Syringe) 40 mg SUBCUT Q24H [facility] Last Admin: 07/10/23 19:49 Dose: 40 mg Documented By: LIVAN Gabapentin (Gabapentin 300 Mg Capsule) 300 mg PO BID [facility] Last Admin: 07/11/23 08:16 Dose: 300 mg Documented By: JAYLIN Glucose (Glucose Gel 15 Gm Gel..Gram.) 15 gm PO Q15M PRN; Protocol PRN Reason: per Hypoglycemia Standing Ord. Guaifenesin/Codeine Phosphate (Guaifen/Codeine Sf 200/20/10ml 10 Ml Liquid) 10 ml PO Q4H PRN PRN Reason: Cough Last Admin: 07/11/23 00:15 Dose: 10 ml Documented By: JASON Hydralazine HCl (Hydralazine Hcl 50 Mg Tablet) 50 mg PO TID [facility]; Protocol Last Admin: 07/11/23 08:16 Dose: 50 mg Documented By: JAYLIN Ceftriaxone Sodium 1 gm/ (Sodium Chloride) 50 mls @ 100 mls/hr IV Q24H [facility] Last Infusion: 07/10/23 16:26 Dose: Infused Documented By: LIVAN Doxycycline Hyclate 100 mg/ (Sodium Chloride) 250 mls @ 166.67 mls/hr IV Q12H [facility] Last Infusion: 07/11/23 06:43 Dose: Infused Documented By: JASON Insulin Human Lispro (Insulin Lispro 100 Unit/Ml 3 Ml Vial) 0 unit SUBCUT QIDACHS [facility]; Protocol Last Admin: 07/11/23 08:14 Dose: 10 unit Documented By: JAYLIN Lisinopril (Lisinopril 10 Mg Tablet) 30 mg PO DAILY [facility]; Protocol Last Admin: 07/11/23 08:16 Dose: 30 mg Documented By: JAYLIN Methylprednisolone Sodium Succinate (Methylprednisolone Sod Succ 125 Mg/2 Ml Vial) 60 mg IVPUSH Q6H [facility] Last Admin: 07/11/23 05:09 Dose: 60 mg Documented By: JASON Metoprolol Tartrate (Metoprolol Tartrate 25 Mg Tablet) 25 mg PO BID [facility]; Protocol Last Admin: 07/11/23 08:16 Dose: 25 mg Documented By: JAYLIN Nystatin (Nystatin Oral Susp 500,000 Unit/5 Ml Oral.Susp) 200,000 unit BUCCAL QID [facility]; Protocol Last Admin: 07/11/23 08:15 Dose: 200,000 unit Documented By: JAYLIN Omeprazole (Omeprazole 20 Mg Capsule.Dr) 20 mg PO BIDAC [facility] Last Admin: 07/11/23 08:16 Dose: 20 mg Documented By: JAYLIN Ondansetron HCl (Ondansetron Hcl 4 Mg/2 Ml Vial) 4 mg IVPUSH Q8H PRN PRN Reason: Nausea and Vomiting Oxybutynin Chloride (Oxybutynin Chloride Er 5 Mg Tab.Er.24) 10 mg PO DAILY [facility] Last Admin: 07/11/23 08:15 Dose: 10 mg Documented By: JAYLIN Senna (Sennosides 8.6 Mg Tablet) 17.2 mg PO Q24H PRN PRN Reason: constipation Last Admin: 07/10/23 13:41 Dose: 17.2 mg Documented By: ALEX Sodium Chloride (0.9 % Sodium Chloride Flush 3 Ml Syringe) 3 ml IVFLUSH QSHIFT [facility] Last Admin: 07/11/23 08:16 Dose: 3 ml Documented By: JAYLIN Vitamin D (Cholecalciferol (Vitamin D3) 25 Mcg Tablet) 50 mcg PO BEDTIME [facility] Last Admin: 07/10/23 19:50 Dose: 50 mcg Documented By: BEIT Labs 07/11/23 06:04 07/10/23 05:24 Labs: Laboratory Results - last 24 hr 07/10/23 07/10/23 07/10/23 11:08 16:07 20:23 MCV MCH MCHC RDW Plt Count MPV Immature Gran % (Auto) Neut % (Auto) Lymph % (Auto) [place] % (Auto) Eos % (Auto) Baso % (Auto) Lymph # (Auto) [place] # (Auto) Eos # (Auto) Baso # (Auto) Abs Immat Gran (auto) Absolute Neuts (auto) Absolute Nucleated RBC Nucleated RBC % (auto) Smear Tech's Comments POC Glucose 273 H 225 H 261 H 07/11/23 07/11/23 06:04 07:01 MCV 78.4 L MCH 25.6 L MCHC 32.6 RDW 17.6 H Plt Count 446 H MPV 11.9 Immature Gran % (Auto) 1.4 H Neut % (Auto) 91.3 H Lymph % (Auto) 6.1 L [place] % (Auto) 1.1 L Eos % (Auto) 0.0 Baso % (Auto) 0.1 Lymph # (Auto) 0.9 L [place] # (Auto) 0.2 Eos # (Auto) 0.0 Baso # (Auto) 0.0 Abs Immat Gran (auto) 0.21 H Absolute Neuts (auto) 13.5 H Absolute Nucleated RBC 0.000 Nucleated RBC % (auto) 0.0 Smear Tech's Comments VERIFIED POC Glucose 390 H* Microbiology Microbiology Results: Microbiology 07/08/23 15:00 Blood Culture - Preliminary Blood - Venous No growth after 48 hours. 07/08/23 15:00 Blood Culture - Preliminary Blood - Venous No growth after 48 hours. Assessment and Plan (1) Multifocal pneumonia: Status: Acute Plan 78-year-old female with history of COPD/current smoker type 2 diabetes fairly well controlled with last hemoglobin A1c 8 presents to the emergency room with approximately 10 days of worsening shortness of breath and overall feeling ill. She endorses a productive cough of yellow-green sputum. She states that she continues to smoke 1-2 cigarettes a day in backdrop of known history of non oxygen dependent COPD Multifocal pneumonia ceftriaxone/doxycycline Solu-Medrol 60 IV q.6 DuoNebs q.4 hours p.r.n. while awake titrate O2 to maintain sats greater than or equal to 92% PT consult pending Oral thrush nystatin swish and swallow ERICK (question prerenal) resolved with volume repletion Hypertension Continue lisinopril, hydralazine, metoprolol Diabetes type 2 with hyperglycemia Likely secondary to steroids ss, ada diet GERD Continue PPI Hyperlipidemia Continue statin Neuropathy. Unspecified Continue gabapentin Full code Attending Dr. Yovany Clement Patient requires ongoing hospitalization for IV antibiotics to treat multifocal pneumonia and provide supplemental O2 Quality Stroke Does the patient have a stroke diagnosis?: No VTE Prior VTE?: No VTE Risk Level:: Medical - moderate - high VTE Device Contraindication: Treatment Not Indicated VTE Drug Contraindication: N/A - Med Ordered
[2023-07-11 10:50] LABS: Alanine Aminotransferase 26 U/L (0-31); Albumin Level 2.6 g/dL (3.5-5.0); Alkaline Phosphatase 126 U/L (39-117); Anion Gap 17 (12-20); Aspartate Amino Transferase 30 U/L (5-31); Bilirubin Total 0.3 mg/dL (0.0-1.0); Blood Urea Nitrogen 42 mg/dL (9-16); Calcium 9.4 mg/dL (8.4-10.2); Carbon Dioxide 19 mmol/L (22-29); Chloride 106 mmol/L (96-108); Creatinine Clr Calc Pharmacy 44.6; Estimated Glomerular Filt Rate 52; Glucose Random 365 mg/dL (60-115); Potassium 3.6 mmol/L (3.3-5.1); Sodium 138 mmol/L (135-145); Total Protein 6.9 g/dL (6.5-8.0)
[2023-07-11 11:15] LABS: Glucose, Whole Blood 299 mg/dL (60-115)
--- NOTE | 2023-07-11 14:39 | MHC.CM.PN ---
EMR REVIEWED AND PER MD ROUNDS, PT NOT MEDICALLY CLEARED FOR DC (AWAITING P.T. EVAL, INCREASED SOB) CM WILL CONTINUE TO FOLLOW FOR ANY CHANGE IN DC PLAN/NEEDS.
[2023-07-11] MEDS: cefTRIAXone sodium 1 GM in 0.9 % Sodium Chloride 50 ML IV (16:03)
[2023-07-11 16:13] LABS: Glucose, Whole Blood 247 mg/dL (60-115)
[2023-07-11] MEDS: ondansetron HCL 4 MG/2 ML VIAL IVPUSH (18:21)
[2023-07-11] MEDS: Cholecalciferol (Vitamin D3) 25 MCG TABLET 50 MCG PO (20:08)
[2023-07-11] MEDS: Atorvastatin Calcium 40 MG TABLET PO (20:09)
[2023-07-11] MEDS: Enoxaparin Sodium 40 MG/0.4 ML SYRINGE SUBCUT (20:09)
[2023-07-11 21:03] LABS: Glucose, Whole Blood 269 mg/dL (60-115)
[2023-07-12 00:05] VITALS: PULSE 82; RESP 18; O2SAT 94
[2023-07-12] MEDS: Albuterol/Iprat 2.5/0.5MG 3 ML AMPUL.NEB INHALE ×2 (00:05→08:30)
[2023-07-12] MEDS: methylPREDNISolone Sod Succ 125 MG/2 ML VIAL 60 MG IVPUSH ×3 (01:15→11:47)
[2023-07-12] MEDS: 0.9 % Sodium Chloride Flush 3 ML SYRINGE IVFLUSH (01:19)
[2023-07-12 03:14] VITALS: BP 178/86; PULSE 68; RESP 16; TEMP 36; O2SAT 94
--- NOTE | 2023-07-12 04:28 | PC.NURSE ---
pt reported blood in the sputum clear with bloody steaks pt also is treated for thrush in mouth . reported to dr Pal will monitor
[2023-07-12 04:30] VITALS: BP 165/95
[2023-07-12] MEDS: Doxycycline Hyclate 100 MG in 0.9 % Sodium Chloride 250 ML 166.67 MG IV (06:12)
[2023-07-12 06:57] VITALS: BP 158/90; PULSE 72; RESP 18; TEMP 36.6; O2SAT 91
[2023-07-12 07:11] LABS: Glucose, Whole Blood 345 mg/dL (60-115)
[2023-07-12] MEDS: Insulin Lispro 100 UNIT/ML 3 ML VIAL SUBCUT ×2 (07:45→11:48)
[2023-07-12] MEDS: lisinopriL 10 MG TABLET 30 MG PO (07:46)
[2023-07-12] MEDS: hydrALAZINE HCl 50 MG TABLET PO (07:46)
[2023-07-12] MEDS: Omeprazole 20 MG CAPSULE.DR PO (07:46)
[2023-07-12] MEDS: Nystatin Oral Susp 500,000 UNIT/5 ML ORAL.SUSP 200000 UNIT BUCCAL ×2 (07:46→12:49)
[2023-07-12] MEDS: oxyBUTYnin chloride ER 5 MG TAB.ER.24 10 MG PO (07:46)
[2023-07-12] MEDS: Gabapentin 300 MG CAPSULE PO (07:46)
[2023-07-12] MEDS: Metoprolol Tartrate 25 MG TABLET PO (07:46)
[2023-07-12] MEDS: guaiFEN/Codeine SF 200/20/10ML 10 ML LIQUID PO ×2 (07:47→12:49)
[2023-07-12 08:33] VITALS: PULSE 78; RESP 20; O2SAT 95
[2023-07-12 11:15] LABS: Glucose, Whole Blood 317 mg/dL (60-115)
--- NOTE | 2023-07-12 12:04 | P.DS_ITS ---
DS: Providers Provider Date of Service: 07/12/23 Date of admission: 07/08/23 18:37 Primary care physician: Vickie King MD DS: Diagnosis Discharge Diagnosis (1) Multifocal pneumonia: Status: Acute DS: Summary Hospital Course Hospital Course: History and physical as per admitting provider. 78 y/o F patient; PMH COPD not on O2, T2DM on Glipizide, HLD, HTN, GERD; presents from home with family who report patient has been generally unwell since 06/28/2023. The patient herself endorses generalized non-focal abdominal pain, nausea, decreased PO intake, diarrhea, and unspecified weight loss. She denies vomiting. The patient states she initially thought she had COVID, however over the last two days she has noticed her symptoms seem to be worsening. Specifically she endorses a cough productive of yellow/green sputum without hemoptysis and continued significant generalized abdominal pain without the ability to tolerate PO. Family deny known sick contacts. Patient denies: chest pain, syncope. In emergency room; CT angio failed to demonstrate acute PE however showed bilateral upper lobe pneumonias. Admission requested. 70-year-old woman treated for multifocal pneumonia. Treated with IV ceftriaxone and doxycycline as well as Solu-Medrol 60 mg every 6 hours and scheduled DuoNebs. Oxygen was titrated down to 2 L with oxygen saturation no less than 90 1%. He was also treated for oral thrush with nystatin swish and swallow and she will continue this for a total of 7 days. Repeat chest x-ray today showed continued bilateral pneumonia but improvement. Discussed importance of smoking cessation, patient reports that she will not smoke anymore, she reported she was only smoking a couple cigarettes a week. Plan is to discharge patient to short- term rehab for physical therapy. ERICK. Likely prerenal. Resolved with volume repletion Hypertension. Continue lisinopril, hydralazine and metoprolol Diabetes mellitus type 2 with hyperglycemia. Likely secondary to IV steroids. Continue home medications GERD. Continue PPI Hyperlipidemia. Continue statin Neuropathy. Continue gabapentin Time Attestation Discharge coordination time: Greater than 30 minutes Quality: Safe Use of Opioids Does Pt have an Active Cancer Diagnosis on the Problem List?: No Quality: Stroke Does the patient have a stroke diagnosis?: No Physical Exam Vital Signs: Vital Signs: Last Vital Signs Temp 98 F 07/12/23 06:57 Pulse 78 07/12/23 08:33 Resp 20 07/12/23 08:33 BP 158/90 H 07/12/23 06:57 Pulse Ox 91 L 07/12/23 06:57 O2 Del Method Nasal Cannula 07/12/23 06:57 O2 Flow Rate 2 07/12/23 06:57 BMI result Body Mass Index 30.1 Appearing in no acute distress head is normocephalic atraumatic eyes pupils are PERRLA sclera is anicteric mouth throat mucous membranes are intact and moist neck is supple no lymphadenopathy, no JVD noted lung sounds are clear to auscultation heart regular rate rhythm, clear S1, S2 positive bowel sounds, abdomen is soft, nontender neuro patient is alert x3, no focal deficits DS: Data Data Completed and Pending Labs on day of discharge: Laboratory Results - last 24 hr 07/11/23 07/11/23 07/12/23 16:09 20:59 06:58 POC Glucose 247 H 269 H 345 H 07/12/23 11:08 POC Glucose 317 H Preliminary micro results at discharge 07/08/23 15:00 Blood Culture - Preliminary Blood - Venous No growth after 48 hours. 07/08/23 15:00 Blood Culture - Preliminary Blood - Venous No growth after 48 hours. Discharge Plan Discharge Anticipated Discharge Date/Time: 07/12/23 11:54 Patient Disposition: Xfer Inpatient Rehab Fac Discharge Diagnosis: Multifocal pneumonia ERICK Oral thrush Referrals: [facility] [Outside] - 1 Week (TRANSFER FOR PULMONARY REHAB) Vickie King MD [Primary Care Provider] - 1 Week Discharge Medications: New nystatin 100,000 unit/mL Suspension 200,000 unit buccal QID Qty: 60 0RF doxycycline hyclate 100 mg tablet 100 mg PO BID Qty: 8 0RF cefuroxime axetil 500 mg tablet 500 mg PO BID Qty: 8 0RF Continued glipizide 10 mg tablet 10 mg PO DAILY gabapentin 300 mg capsule 300 mg PO BID metoprolol tartrate 25 mg tablet 25 mg PO BID cyanocobalamin (vitamin B-12) 1,000 mcg Tablet 1,000 mcg PO DAILY estradiol 0.01 % (0.1 mg/gram) cream 1 appful VAGINAL MOTH@2100 methenamine hippurate 1 gram tablet 1 g PO BID omeprazole 20 mg Capsule,Delayed Release(Dr/Ec) 20 mg PO BIDAC trimethoprim 100 mg tablet 100 mg PO BEDTIME fluticasone furoate-vilanterol [Breo Ellipta] 200-25 mcg/dose blister with device 1 inh inhalation DAILY 30 Days Qty: 60 5RF albuterol sulfate 90 mcg/actuation HFA aerosol inhaler 2 puff inhalation Q6H PRN (Reason: Shortness Of Breath Or Wheezing) atorvastatin 40 mg tablet 40 mg PO DAILY hydralazine 50 mg tablet 50 mg PO TID lisinopril 30 mg tablet 30 mg PO DAILY oxybutynin chloride 10 mg tablet extended release 24hr 10 mg PO DAILY cholecalciferol (vitamin D3) 50 mcg (2,000 unit) capsule 50 mcg PO DAILY Discharge Orders: Discharge Order (Routine); Ordered 07/12/23 Ordered By: Paulette Copeland Diet: Advance to usual diet Activity on Discharge: As tolerated Stand Alone Forms: Patient Portal Discharge page Care Plan Goals: Plan to transfer to short-term rehab for physical therapy Health Concerns: Multifocal pneumonia ERICK Oral thrush Plan of Treatment: Follow-up with primary care provider as needed Take all medications as prescribed Assessment: See discharge summary
--- NOTE | 2023-07-12 12:27 | MHC.CM.PN ---
DP: PT HAS BEEN MEDICALLY CLEARED FOR DC TO STR AT [facility]. INSURANCE AUTH OBTAINED BY CENTER. RN AWARE. DAUGHTER/HCP AWARE AND AT BEDSIDE. BLS TRANSPORT BOOKED FOR 2:30 PM [facility]IA [place]
== END 2023-07-12 15:17 | DRG 190 ==
LOC: HO.ED 17:52 → HO.EDOVER 18:44 → HO.S3 19:41
PROVIDERS: Admitting Provider Hospitalist; Emergency Provider Emergency Medicine; PCP Internal Medicine; Visit Provider Nurse Practitioner Acute Care
DX: J44.0 Chronic obstructive pulmonary disease with (acute) lower respiratory infection (principal); J18.9 Pneumonia, unspecified organism; B37.0 Candidal stomatitis; N17.9 Acute kidney failure, unspecified; E78.5 Hyperlipidemia, unspecified; E11.40 Type 2 diabetes mellitus with diabetic neuropathy, unspecified; E11.65 Type 2 diabetes mellitus with hyperglycemia; E87.6 Hypokalemia; Z20.822 Contact with and (suspected) exposure to COVID-19; Z88.0 Allergy status to penicillin; Z79.51 Long term (current) use of inhaled steroids; Z79.84 Long term (current) use of oral hypoglycemic drugs; Z79.899 Other long term (current) drug therapy
CPT/HCPCS: 0241U; 36415; 71045; 71046; 71275; 74177; 80048; 80053; 80076; 81001; 82010; 82803; 82947; 83605; 83690; 83735; 84484; 85007; 85025; 85027; 87040; 93005; 94640; 97162; 99285; J0696; J1650; J2405; J2930; J3480; J7120; Q9967

== ENCOUNTER → 2023-07-08 13:12 | Outpatient (BNV) | payer OTHER, SELFPAY | PROVIDERS: Emergency Provider Emergency Medicine; PCP Internal Medicine; Visit Provider Internal Medicine Cardiovascular Disease | DX: R94.31 Abnormal electrocardiogram [ECG] [EKG] (principal) | CPT/HCPCS: 93010 ==

== ENCOUNTER → 2023-07-08 18:37 | Outpatient (BNV) | payer OTHER, SELFPAY | PROVIDERS: Admitting Provider Hospitalist; Emergency Provider Emergency Medicine; PCP Internal Medicine; Visit Provider Hospitalist | DX: J18.9 Pneumonia, unspecified organism (principal); E11.65 Type 2 diabetes mellitus with hyperglycemia; N17.9 Acute kidney failure, unspecified; B37.0 Candidal stomatitis | CPT/HCPCS: 99223; 99232; 99233; 99238 ==